=== PATIENT | female | born 1965 | race Caucasian/White ===

== ENCOUNTER → 2019-06-04 09:35 | Outpatient (CLI) | payer MEDICARE, MEDICAID, SELFPAY ==
--- NOTE | ~2019-06-04 | XR_ITS ---
EXAMINATION: XR chest 2V DATE: 06/04/2019 09:58 INDICATION: Cough, tobacco use TECHNIQUE: Frontal and lateral views of the chest are obtained COMPARISON: 02/14/2019 FINDINGS: The lungs are free of acute opacities. There is no pleural effusion or pneumothorax. The ca rdiomediastinal silhouette is normal. The visualized bones and soft tissues are unremarkable. IMPRESSION: 1. No acute cardiopulmonary abnormality. Reviewed, dictated and finalized at location B.
== END ==
PROVIDERS: PCP Emergency Medicine; Visit Provider Emergency Medicine
DX: R05 Cough (principal)
CPT/HCPCS: 71046

== ENCOUNTER 2019-09-23 16:52 | Emergency (ER) | payer MEDICARE, MEDICAID, SELFPAY ==
--- NOTE | ~2019-09-23 | US_ITS ---
EXAMINATION: US venous doppler LE RT DATE: 09/23/2019 17:32 INDICATION: Right lower limb pain and swelling. TECHNIQUE: Grayscale ultrasound images without and with compression and Doppler ultrasound images of the right lower extremity veins were obtained. COMPARISON: None. FINDINGS: The visualized portions of right common femoral vein, profunda (deep) femoral vein, femoral vein, pop liteal vein, peroneal veins, posterior tibial veins, and greater saphenous vein outflow are patent. T here is a moderate-sized right popliteal cyst. IMPRESSION: 1. No deep venous thrombosis. 2. Moderate-sized right popliteal cyst. Reviewed, dictated and finalized at location A.
[2019-09-23 17:00] VITALS: BP 153/87; PULSE 89; RESP 16; TEMP 37.6; O2SAT 97
--- NOTE | 2019-09-23 18:54 | ED.EXTPRO ---
HPI - Extremity Problem General Chief complaint: Extremity Problem,Nontraumatic Stated complaint: leg pain and swelling Time Seen by Provider: 09/23/19 18:41 Source: patient Mode of arrival: ambulatory Limitations: no limitations History of Present Illness HPI Narrative: This is a 53 year old female that presents to the ER for right calf pain x 3 days. Was told to come to the ER to r/o DVT by her PCP. Reports pain and swelling behind the right knee. Denies any recent injury or trauma. Denies decreased range of motion, erythema, edema, or numbness. Related Data Allergies Allergy/AdvReac Type Severity Reaction Status Date / Time codeine AdvReac Unknown Unverified 05/13/18 17:34 Review of Systems Review of Systems: Narrative: CONSTITUTIONAL: Denies fever SKIN: Denies erythema MUSCULOSKELETAL: Reports joint pain, and myalgia. NEUROLOGIC: Denies numbness All systems reviewed & are unremarkable except as noted in HPI and below PMFSH Past Medical History Medical History (Updated 09/23/19 @ 19:09 by Sadia Reeder PA-C) History of gastroesophageal reflux (GERD) History of hyperlipidemia Exam Narrative: Exam Narrative: GENERAL: Well-appearing, well-nourished, and in no acute distress. HEAD: Normocephalic, atraumatic. EYES: EOMI. EXTREMITIES: Normal range of motion. No edema, erythema or obvious deformity. SKIN: Warm, dry, no rash. NEURO: No focal deficits. Alert and oriented x3. PSYCH: Normal mood and affect Course Vital Signs Vital signs: Vital Signs Temperature 99.6 F 09/23/19 17:00 Pulse Rate 89 09/23/19 17:00 Respiratory Rate 16 09/23/19 17:00 Blood Pressure 153/87 H 09/23/19 17:00 Pulse Oximetry 97 09/23/19 17:00 Temperature 99.6 F 09/23/19 17:00 Pulse Rate 89 09/23/19 17:00 Respiratory Rate 16 09/23/19 17:00 Blood Pressure 153/87 H 09/23/19 17:00 Pulse Oximetry 97 09/23/19 17:00 MDM - Extremity (Nontraumatic) MDM Narrative Medical decision making narrative: Patient presents to the ER for right calf pain x 2 days. Patient is afebrile and nontoxic-appearing. No recent injury or trauma. Right lower extremity venous Doppler shows a moderate sized right popliteal cyst. Patient was updated on case findings. Will be given orthopedics for follow-up. Patient is stable and felt appropriate for further outpatient evaluation. She was given warnings to return to the ER Imaging Data Radiologist's impression: ITS Impressions Venous Doppler Study 09/23/19 17:38 IMPRESSION: 1. No deep venous thrombosis. 2. Moderate-sized right popliteal cyst. Critical Care Time Critical Care Time Critical Care Time: No Discharge Plan Discharge Clinical Impression: Synovial cyst of popliteal space [Hill], right knee Patient Disposition: Home, Self-Care Condition: Stable Instructions: Bakers Cyst (ED) Additional Instructions: Return to the emergency department if you experience fever, redness and swelling of your leg, or any other symptoms that are concerning to you Rest. Elevate. Ice to the area. Tylenol or ibuprofen as needed for pain Follow-up with orthopedics Follow-up/Referrals: Rigoberto Valladares MD [Physician] - 1 Week Shawn Mcclure MD [Primary Care Provider] -
[2019-09-23 19:23] VITALS: BP 144/90; PULSE 77; RESP 20; O2SAT 100
== END 2019-09-23 19:25 | disposition home or self-care (01) ==
PROVIDERS: Emergency Provider Emergency Medicine; PCP Emergency Medicine
DX: M71.21 Synovial cyst of popliteal space [Baker], right knee (principal); K21.9 Gastro-esophageal reflux disease without esophagitis; E78.5 Hyperlipidemia, unspecified
CPT/HCPCS: 93971; 99284

== ENCOUNTER 2019-10-10 09:22 | Outpatient (CLI) | payer MEDICARE, MEDICAID, SELFPAY ==
--- NOTE | ~2019-10-10 | US_ITS ---
CORRECTED REPORT Description changed to include w/ imaging. gabriel EXAMINATION: abscess/cyst asp w/imaging DATE: 10/10/2019 10:09 INDICATION: Right knee popliteal cyst. TECHNIQUE: The procedure including the risks and benefits was discussed with the patient. Risks discussed included bleeding and infection. The patient understood the risks and agreed to proceed. The skin overlying the posterior right knee was prepped and draped in usual sterile fashion. Anesthetic was administered with 1% lidocaine subcutaneously. An 18 gauge trochar needle was inserted into the Hill's cyst under continuous sonographic guidance. Fluid was aspirated. The entry site was cleaned and dressed. There were no immediate complications. FINDINGS: Ultrasound images demonstrate the needle in the right-sided Hill's cyst. IMPRESSION: 1. Ultrasound-guided right-sided Hill's cyst aspiration yielding 4 mL clear, earlene-colored fluid. Reviewed, dictated and finalized at location A. MTDD IMPRESSION: 1. Ultrasound-guided right-sided Hill's cyst aspiration yielding 4 mL clear, a mber-colored fluid.
== END 2019-10-10 09:23 | disposition home or self-care (01) ==
PROVIDERS: PCP Emergency Medicine; Visit Provider Nurse Practitioner Family
DX: M71.21 Synovial cyst of popliteal space [Baker], right knee (principal)
CPT/HCPCS: 10160; 76942

== ENCOUNTER 2019-11-27 09:30 | Outpatient (CLI) | payer MEDICARE, MEDICAID, SELFPAY ==
--- NOTE | ~2019-11-27 | MR_ITS ---
EXAMINATION: MR knee RT wo con DATE: 11/27/2019 10:25 INDICATION: Right knee pain TECHNIQUE: Magnetic resonance imaging (MRI) of the right knee was performed without intravenous contr ast. Sequences included coronal PD-weighted FSE, coronal PD-weighted FS FSE, sagittal T2-weighted FS E, sagittal PD-weighted FS FSE and axial PD weighted fat saturated FSE. COMPARISON: Right knee radiographs dated 10/07/2019 FINDINGS: Medial compartment: The body and posterior horn of the medial meniscus are small with truncation of the normally sharp fr ee edge of the free edge of the posterior horn and with residual horizontal longitudinal tear plane e xtending to the inferior articular surface of the remaining tissue at the meniscal body. There is no provided history of prior knee surgery or evident scarring at Hoffa's fat pad to suggest prior arthro scopy. Findings would be consistent with complex meniscal tear with displacement or degeneration resu lting in loss of the meniscal tissue. Partial-thickness cartilage loss with fissuring and chondral chaney rface regularity at the medial tibial plateau and at the anterior to central weightbearing medial fem oral condyle. Lateral compartment: Horizontal longitudinal tear extending to the inferior articular surface of the body of the lateral m eniscus. Mild chondral surface irregularity along the weightbearing lateral femoral condyle with part ial thickness cartilage loss posteriorly and relatively preserved thickness at the anterior to centra l weightbearing lateral femoral condyle. Patellofemoral compartment: Partial-thickness chondral fissure along the central aspect of the medial patellar facet. Chondral fi ssuring at the trochlear involving greater than 50% the cartilage thickness with subtle underlying co rtical irregularity at the inferior aspect of both the medial and lateral trochlea and at the central aspect of the trochlear groove. Ligaments and tendons: Anterior and posterior cruciate ligaments are normal. The fibular collateral ligament is normal. Ther e is mild thickening and mild increased signal at the proximal aspect of the medial collateral ligame nt without surrounding edema consistent with mild scarring related to chronic sprain. The extensor me chanism is normal. The visualized medial and lateral hamstring tendons as well as the iliotibial band are normal. Fluid: Physiologic amount of fluid in the joint space. No loose osteochondral bodies identified. Small Hill 's cyst measuring 4.3 x 1.2 x 1.1 cm. Osseous/other: Normal marrow signal. No fracture or pathologic marrow replacing process. IMPRESSION: 1. Complex tear of the small body and posterior horn of the medial meniscus with secondary loss/displ acement of meniscal tissue. Correlate with surgical history to confirm that there is not been prior p artial meniscectomy. 2. Small longitudinal horizontal tear at the body of the lateral meniscus. 3. Mild tricompartmental osteoarthritis with regions of high-grade chondromalacia at the trochlear an d moderate grade chondromalacia at the patella and medial and lateral compartments. 4. Small Hill's cyst. Reviewed, dictated and finalized at location A. IMPRESSION: 1. Complex tear of the small body and posterior horn of the medial meniscus wit h secondary loss/displacement of meniscal tissue. Correlate with surgical histo ry to confirm that there is not been prior partial meniscectomy. 2. Small longitudinal horizontal tear at the body of the lateral meniscus. 3. Mild tricompartmental osteoarthritis with regions of high-grade chondromalac ia at the trochlear and moderate grade chondromalacia at the patella and medial and lateral compartments. 4. Small Hill's cyst.
== END 2019-11-27 09:31 | disposition home or self-care (01) ==
PROVIDERS: PCP Emergency Medicine; Visit Provider Nurse Practitioner Family
DX: M25.561 Pain in right knee (principal); S83.231A Complex tear of medial meniscus, current injury, right knee, initial encounter; S83.281A Other tear of lateral meniscus, current injury, right knee, initial encounter; M17.11 Unilateral primary osteoarthritis, right knee; M22.41 Chondromalacia patellae, right knee; M71.21 Synovial cyst of popliteal space [Baker], right knee
CPT/HCPCS: 73721

== ENCOUNTER 2020-09-14 16:28 | Outpatient (CLI) | payer MEDICARE, MEDICAID, SELFPAY ==
--- NOTE | ~2020-09-14 | CT_ITS ---
EXAMINATION: CT lung screening DATE: 09/14/2020 16:49 INDICATION: History of tobacco dependence TECHNIQUE: Computed tomography (CT) of the chest was performed without intravenous contrast. The dose -length product was 149.42 mGy-cm. Automated exposure control and iterative reconstruction technique were employed. COMPARISON: CT dated 12/17/2018 FINDINGS: Heart size is normal. No significant pleural or pericardial effusion. There is moderate siz e hiatal hernia. No thoracic lymphadenopathy. There are several liver cysts, unchanged from prior exa mination. There is mild emphysema. Stable 3 mm fissural nodule on the right, coronal reconstruction i mage 49. Calcified granuloma left apex. Mild thoracic spondylosis. No acute osseous abnormality. IMPRESSION: 1. Lung-RADS category 2: Benign appearance or behavior. Continue annual screening with noncontrast lo w-dose chest CT in 12 months. Reviewed, dictated and finalized at location A. IMPRESSION: 1. Lung-RADS category 2: Benign appearance or behavior. Continue annual screeni ng with noncontrast low-dose chest CT in 12 months.
== END 2020-09-14 16:29 | disposition home or self-care (01) ==
LOC: ANHIMG 16:29
PROVIDERS: PCP Emergency Medicine; Visit Provider Emergency Medicine
DX: Z87.891 Personal history of nicotine dependence (principal)
CPT/HCPCS: 71271

== ENCOUNTER 2020-09-18 08:36 | Outpatient (CLI) | payer MEDICARE, MEDICAID, SELFPAY ==
--- NOTE | ~2020-09-18 | MM_ITS ---
EXAMINATION: MM screening tracey BI w lindsay HISTORY: Screening TECHNIQUE: Craniocaudal and mediolateral oblique 3-D tomosynthesis images were obtained and synthetic 2-D images were generated. CAD analysis was submitted and interpreted. COMPARISON: Comparison to multiple prior studies sequentially, with oldest reviewed study dated 04/21. BREAST PARENCHYMAL COMPOSITION: There are scattered areas of fibroglandular density. FINDINGS: There is no evidence of suspicious mass, calcification, or architectural distortion to sugg est malignancy in either breast. There has been no suspicious interval change. IMPRESSION: 1. No mammographic evidence of malignancy. 2. Recommend routine screening mammography in one year. BI-RADS Category 1: Negative Reviewed, dictated and finalized at location A.
== END 2020-09-18 08:37 | disposition home or self-care (01) ==
LOC: ANHIMG 08:38
PROVIDERS: PCP Emergency Medicine; Visit Provider Emergency Medicine
DX: Z12.31 Encounter for screening mammogram for malignant neoplasm of breast (principal)
CPT/HCPCS: 77063; 77067

== ENCOUNTER → 2021-01-29 00:11 | Outpatient (CLI) | payer MEDICARE, MEDICAID, SELFPAY ==
[2021-01-29 18:14] LABS: SARS-CoV-2 RNA PCR Negative
== END ==
PROVIDERS: PCP Emergency Medicine; Visit Provider Orthopaedic Surgery
DX: Z01.812 Encounter for preprocedural laboratory examination (principal); Z20.822 Contact with and (suspected) exposure to COVID-19
CPT/HCPCS: C9803; U0003; U0005

== ENCOUNTER 2021-01-31 10:24 | Outpatient (CLI) | payer MEDICARE, MEDICAID, SELFPAY ==
--- NOTE | 2021-01-31 10:30 | ECG_ITS ---
Measurements Intervals [place] Rate: 72 P: 56 OK: 210 QRS: 52 QRSD: 84 T: 62 QT: 353 QTc: 388 Interpretive Statements SINUS RHYTHM WITH FIRST DEGREE AV BLOCK DELAYED PRECORDIAL R/S TRANSITION BASELINE ARTIFACT- I, II, III, AVR, AVL, AVF ABNORMAL ECG Electronically Signed On 01-31-2021 10:54:40 BAG SHAKER by Nicholas Champion D.O.
== END 2021-01-31 10:25 | disposition home or self-care (01) ==
LOC: ANHSURGERY 10:30
PROVIDERS: PCP Emergency Medicine; Visit Provider Orthopaedic Surgery
DX: Z01.818 Encounter for other preprocedural examination (principal); F17.210 Nicotine dependence, cigarettes, uncomplicated; I44.0 Atrioventricular block, first degree
CPT/HCPCS: 93005

== ENCOUNTER 2021-02-01 01:24 | Day surgery (SDC) | payer MEDICARE, MEDICAID, SELFPAY ==
[2021-01-28 08:24] VITALS: BMI 28.0
--- NOTE | 2021-01-28 08:34 | PC.NURSE ---
Report to the Outpatient Waiting Room, entrance under the green pavilion located off [facility], at time 11:30 on date 02/01/21. OR Time: 1:30. - You and your visitor will be asked a series of questions to screen for COVID 19 for your protection. - A mask is required within the hospital. - Only one visitor is allowed at this time. Patient visitors will be guided where to wait when not with patient. Preoperative COVID Testing Requirements: No COVID Test needed if: (proof is required; if not received patient will have Rapid Test prior to entry) - Patient has received COVID Vaccine at least 14 days prior to procedure date or - Patient has positive COVID test result within last 90 days of surgery date. COVID Test needed if above criteria is not met If not COVID vaccinated a COVID test must be conducted within 72 hours of surgery and patient is asked to isolate self from time of testing until procedure. You will go to the [employer] [facility] for your COVID testing. The [employer] [facility] is located at the corner of [address] [facility]. COVID TEST 01/29 AT 8:05 You will only be called if COVID results are positive and your surgeon may reschedule your elective surgery date. Patients may have clear liquids (water, carbonated beverages, clear teas, apple juice) until 3 hours prior to surgery with a maximum of 20 ounces. - No food from midnight until time of surgery - Infants may have breast milk until 4 hours before surgery, infant formula 6 hours prior to surgery. - Children will be allowed to drink immediately following surgery. If applicable, please bring a bottle or sippy cup to assist with drinking. Juice, water, soda, and popsicles are readily available. For infants on formula, please bring formula the day of surgery. Pacifiers are allowed. Take the following medications with a SIP of water the morning of surgery: INHALER Medications to discontinue per physician: N/A Date to take last dose: N/A Please no make-up, nail brazilian, hairspray, perfume, deodorant, or body powder the day of surgery. No jewelry (including any body piercings) or valuables the day of surgery, leave them at home. Please take a shower or bath the night before, or the morning of, surgery with an antibacterial soap. Wear comfortable, loose fitting clothing. Children are encouraged to wear pajamas. HIBICLENS SHOWER X 3 DAYS - Jewelry must be removed prior to entering the operating room. Rings and piercings that are not removed may be cut off. - The hospital will not accept responsibility for valuables. - Please leave all valuables, including medications, at home the day of surgery. If you are going home after surgery, a licensed service parts driver must drive you home. - NO public transportation without another adult. - We recommend that an adult stay with you for 24 hours following discharge. - We also recommend that you do not drive, make important decision, drink alcoholic beverages, or take any drugs that were not prescribed by your health care provider for at least 24 hours after your discharge time. For Pediatric surgeries, we recommend two adults accompany the child home (only one inside the building at this time). Follow any additional instructions given to you from your surgeon. Telephone instructions given to ALDO LOWE and asked if any additional questions and then verbalized understanding. Patient advised to call surgeon office or pre surgery nurse liaison [phone] if any additional questions.
[2021-02-01] VITALS (8 sets, daily range): BP systolic 102–155; BP diastolic 49–85; PULSE 58–83; RESP 12–23; TEMP 36.3–36.4; O2SAT 95–100
--- NOTE | 2021-02-01 07:24 | WPDHPUPDATE1 ---
History and Physical Update Update Date/Time: 02/01/21 07:24 History and Physical has been reviewed, including an updated exam of the patient. There are NO changes in the patient's condition. Risks, benefits, and alternatives have been discussed and questions answered. Patient agrees to proceed with procedure.
--- NOTE | 2021-02-01 08:46 | WPDANESEPPF ---
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, chondromylasia Patient Data Age: 55 Gender: F Height: 1.75 m Weight: 86.18 kg Allergies Allergy/AdvReac Type Severity Reaction Status Date / Time codeine Allergy Unknown Chest Pain Verified 02/01/21 08:45 Home Medications Medication Instructions Recorded Confirmed Type chlorhexidine gluconate 4 % 1 applic TOPICAL ONCE #237 ml 01/24/21 01/28/21 Rx topical liquid amitriptyline 10 mg PO HS 01/28/21 01/28/21 History zmjweaeptah-vwudhcfba-bwgrxfqk 1 inh INHALATION DAILY 01/28/21 01/28/21 History [Trelegy Ellipta] sucralfate 1 g PO TID 01/28/21 01/28/21 History Patient hx anesthesia problems: none Family hx anesthesia problems: none Results Review: All pre-operative results and documents have been reviewed as part of the pre-operative evaluation. [facility] Past Medical History Medical History Degenerative joint disease of knee Emphysema of lung Headache History of gastroesophageal reflux (GERD) History of hyperlipidemia Lateral meniscus tear Medial meniscus tear Popliteal cyst Right knee pain Shortness of breath Sleep disorder Stomach pain Stomach ulcer Vision abnormalities Weight gain Surgical History Surgical History History of carpal tunnel release Family History Family History Other Arthritis Heart disease Social History Social History Smoking packs per day: 1 Smoking cigarettes per day: 20.0 Years smoked: 30 Smoking pack-years: 30.00 Smoking status: Current every day smoker Tobacco type: cigarettes Alcohol intake: current Drinks per week: 2 Substance use: never Substance use type: does not use Living arrangements: with family Spiritual care concerns: No Anes - Eval Final PreProcedure Day of Procedure 02/01/21 08:46 Patient weight: overweight Heart: regular rate and rhythm Lungs: decreased breath sounds Airway: Mallampati scale class II Neurological: alert and oriented Last oral intake: >/= 8 hours ASA classification: III Emergent: no Anesthetic plan: proceed Anesthesia type and monitoring: general LMA and standard monitoring Results Review: All pre-operative results and documents have been reviewed as part of the pre-operative evaluation. Informed Consent: The patient's anesthetic plan and its attendant risks and benefits were discussed with the patient/family/POA. Questions were solicited and answers provided to the satisfaction of the patient/family/POA.
[2021-02-01] MEDS: ACETAMINOPHEN 500 MG TABLET 1000 MG PO (08:53)
[2021-02-01] MEDS: CELECOXIB 200 MG CAPSULE PO (08:54)
[2021-02-01] MEDS: LACTATED RINGERS 1,000 ML 30 ML IV CONT ×2 (09:33→10:44)
[2021-02-01] MEDS: ceFAZolin 2 GM/D5W 50 ML 2 GM/50 ML BAG IVPB (09:52)
[2021-02-01] MEDS: BUPIVACAINE HCL 0.5% PF 30 ML VIAL INFILTRATE (10:16)
--- NOTE | 2021-02-01 10:58 | W.PM.PROC2 ---
Procedure Note - Detailed Date of Procedure 02/01/21 Pre-op Diagnosis right lateral meniscus tear, chondromylasia Post-op Diagnosis other (RIGHT MEDIAL AND LATERAL MENISCUS TEAR) Procedure Performed RIGHT KNEE SCOPE Surgeon Gerardo Ramirez MD Anesthesia general Description of Procedure PATIENT WAS TAKEN TO THE OR. RIGHT LEG WAS PREPPED AND DRAPED STERILE. TROCARS WERE PLACED IN THE USUAL FASHION. CAMERA WAS INTRODUCED. THERE WAS CHONDROMALACIA TO THE PATELLA FEMORAL JOINT. THERE WAS A LOT OF SYNOVITIS IN ALL COMPARTMENTS. THE MEDIAL COMPARTMENT SHOWED CHONDROMALACIA TO THE MEDIAL FEMORAL CONDYLE. A SHAVER WAS USED TO PREFORM A CHONDROPLASTY. THERE WAS A COMPLEX MEDIAL MENISCUS TEAR. THE TEAR WAS RESECTED WITH A BITER AND A SHAVER DOWN TO A SMOOTH BASE. ABOUT 30% OF THE MENISCUS WAS REMOVED. THE ACL WAS INTACT. THE LATERAL MENISCUS WAS TORN AT THE ANTERIOR HORN AND MID SUBSTANCE. THE TEAR WAS RESECTED. THE LATERAL COMPARTMENT HAD GRADE 2 CHONDROMALACIA AT THE LATERAL FEMORAL CONDYLE. CHONDROPLASTY WAS PREFORMED. A SYNOVECTOMY WAS PREFORMED WELL. THE PATELLO FEMORAL JOINT UNDERWENT CHONDROPLASTY. THERE WAS GRADE 2 CHONDROMALACIA IN MOST OF THE TROCHLEA AND PART OF THE PATELLA. SYNOVECTOMY WAS PREFORMED IN THE SUPERIOR MEDIAL COMPARTMENT. THE WOUNDS WERE APPROXIMATED WITH 4.0 NYLON. STERILE DRESSING WAS APPLIED. PATIENT WAS EXTUBATED. Estimated Blood Loss 5 Complications No immediate complications Condition stable Disposition PACU
[2021-02-01] MEDS: fentaNYL CITRATE INJ (*CRX) 100 MCG/2 ML VIAL 25 MCG IV PUSH ×4 (11:07→11:27)
[2021-02-01] MEDS: oxyCODONE HCL (*CRX) 5 MG TAB IR PO (11:55)
== END 2021-02-01 12:30 | disposition home or self-care (01) ==
PROVIDERS: PCP Emergency Medicine; Visit Provider Orthopaedic Surgery
PROC: (CPT 29870; principal; 2021-02-01 10:30)
DX: M23.341 Other meniscus derangements, anterior horn of lateral meniscus, right knee (principal); M23.331 Other meniscus derangements, other medial meniscus, right knee; M94.261 Chondromalacia, right knee; M65.861 Other synovitis and tenosynovitis, right lower leg; J43.9 Emphysema, unspecified; F17.210 Nicotine dependence, cigarettes, uncomplicated
CPT/HCPCS: 29880; 93005; A9270; C9803; J0690; J1100; J2250; J2405; J2704; J3010; J7120; U0003; U0005

== ENCOUNTER → 2021-02-07 09:16 | Outpatient (CLI) | payer MEDICARE, MEDICAID, SELFPAY ==
--- NOTE | ~2021-02-07 | CT_ITS ---
EXAMINATION: CT chest abdomen pelvis w con EXAM DATE: 02/07/2021 10:12 INDICATION: Epigastric pain, Other chest pain. TECHNIQUE: Spiral CT of the chest, abdomen and pelvis was performed following intravenous injection o f 100 mL Omnipaque 350. Axial, coronal and sagittal images chest, abdomen and pelvis were reviewed. Coronal maximum intensity pixel images of chest reviewed. The dose-length product (DLP) for this ex amination was 1268.45 mGy-cm. The exposure was tailored according to patient size (auto mA exposure control), and iterative reconstruction (ASIR) was used as additional dose reduction technique. Compar karma is made to prior examination from 09/14/2020. FINDINGS: CHEST: There is mild emphysema. No central pulmonary emboli or suspicious lung opacities. There are no pleural or pericardial effusions. Tracheobronchial tree is patent. There is no mediastinal, hi lar or axillary lymphadenopathy. There is no pneumothorax. Heart normal in size. No evidence of coronary arterial calcification. ABDOMEN PELVIS: Scattered liver cysts up to about 5 cm. Spleen, adrenal glands and pancreas are unrem arkable. There are cholecystectomy clips. Portal and splenic veins are patent. Kidneys enhance sym metrically. There is no hydronephrosis. The uterus is unremarkable. The bladder is unremarkable. There is no retroperitoneal or pelvic lymphadenopathy. Small umbilical fat-containing hernia. The appendix is normal. There is moderate sigmoid colonic diverticulosis. There is no adjacent infla mmatory change to suggest diverticulitis. There is small to moderate-sized gastroesophageal hiatal he rnia. There is expected amount of colonic stool. No free intraperitoneal gas. There are no osteo blastic or osteolytic lesions identified. IMPRESSION: 1. Small to moderate gastroesophageal hiatal hernia. 2. Moderate sigmoid diverticulosis. 3. Small umbilical fat-containing hernia. 4. Mild emphysema. Reviewed, dictated and finalized at location A. NG PLANT OPERATOR
== END ==
PROVIDERS: PCP Emergency Medicine; Visit Provider Internal Medicine Gastroenterology
DX: R10.13 Epigastric pain (principal); R07.89 Other chest pain; K57.30 Diverticulosis of large intestine without perforation or abscess without bleeding; K42.9 Umbilical hernia without obstruction or gangrene; J43.9 Emphysema, unspecified
CPT/HCPCS: 71260; 74177; Q9967

== ENCOUNTER 2021-05-09 08:27 | Outpatient (CLI) | payer OTHER, SELFPAY ==
--- NOTE | ~2021-05-09 | XR_ITS ---
EXAMINATION: XR barium swallow DATE: 05/09/2021 09:23 EAP CONSULTANT INDICATION: Dysphagia. Epigastric pain. TECHNIQUE: Thick barium contrast with gas effervescent crystals were administered orally. Fluoroscop ic images of the esophagus were obtained in various projections. The hypopharynx was also examined. T hereafter, overhead images of the thoracic esophagrus were performed. Fluroscopy time 0.3Dap 9.6 FINDINGS: There is mild narrowing and mucosal irregularity of the distal esophagus near the gastroeso phageal junction. There is a small hiatal hernia. Gastroesophageal reflux is identified. IMPRESSION: 1. Mild distal esophageal narrowing and mucosal irregularity with gastroesophageal reflux, suspiciou s for reflux esophagitis. Reviewed, dictated and finalized at location A. CONSULTANT IMPRESSION: 1. Mild distal esophageal narrowing and mucosal irregularity with gastroesopha geal reflux, suspicious for reflux esophagitis.
== END 2021-05-09 08:28 | disposition home or self-care (01) ==
LOC: ANHIMG 08:33
PROVIDERS: PCP Emergency Medicine; Visit Provider Nurse Practitioner Family
DX: R13.10 Dysphagia, unspecified (principal); R10.13 Epigastric pain; R11.2 Nausea with vomiting, unspecified
CPT/HCPCS: 74220

== ENCOUNTER 2021-11-03 07:47 | Outpatient (CLI) | payer OTHER, SELFPAY ==
--- NOTE | ~2021-11-03 | NM_ITS ---
EXAM: NM gastric emptying study DATE: 11/03/2021 12:52 CDT INDICATION: Reflux. Dysphagia. TECHNIQUE: A gastric emptying study was performed using the methodology of Mckenna SHELTON, et al. J Nucl Med 2007; 48:568-572. The patient was given a meal consisting of 2 scrambled eggs labeled with mCi T c-99m sulfur colloid, 2 slices of toast, two packages of jam, and approximately 120 mL of water. Simu ltaneous anterior and posterior 1-min images of the abdomen were obtained with the patient supine at multiple time points over a total period of 4 hours. The geometric mean of anterior and posterior vie ws was determined, and the percentage retention was calculated for each time point. COMPARISON: CT dated 02/07/2021. FINDINGS: Gastric retention of the radiotracer-labeled meal was 53%, 21%, and 3% at the 1-hour, 2-ho ur, and 4-hour time points, respectively. With this technique, apparent rapid gastric emptying is sug gested by <30% gastric retention at 1 hour. Delayed gastric emptying is defined by gastric retention of >90% at 1 hour, >60% retention at 2 hours, or >10% retention at 4 hours. IMPRESSION: 1. Normal gastric emptying. Reviewed, dictated and finalized at location A. IMPRESSION: 1. Normal gastric emptying.
== END 2021-11-03 07:48 | disposition home or self-care (01) ==
PROVIDERS: PCP Emergency Medicine; Visit Provider Internal Medicine Gastroenterology
DX: K21.9 Gastro-esophageal reflux disease without esophagitis (principal); R13.10 Dysphagia, unspecified
CPT/HCPCS: 78264; A9541

== ENCOUNTER 2024-05-26 12:21 | Outpatient (CLI) | payer MEDICARE, MEDICAID, SELFPAY ==
--- NOTE | ~2024-05-26 | CT_ITS ---
CT Scan of the Chest without Contrast: Clinical Indication: Lung cancer screening, nicotine dependence Technique: Contiguous sections were acquired throughout the chest without intravenous contrast. Dose reduction technique was used on this scan by utilizing automated exposure control and iterative recon struction technique. The dose-length product (DLP) was 158.30 mGy-cm. COMPARISON: 01/18/2021 Findings: There is no evidence of any significant mediastinal, hilar or axillary lymphadenopathy. The mediastin al soft tissues appear normal. There is no evidence of pleural or pericardial effusion. Stable focal irregular nodular groundglass opacity in the medial left lung apex (axial image 20). Mil d emphysema. Images through the upper abdomen reveal moderate hiatal hernia and hepatic cysts. Impression: Lung RADS 2: Benign appearance. 12 month follow-up screening CT advised. Reviewed, dictated and finalized at location . Impression: Lung RADS 2: Benign appearance. 12 month follow-up screening CT advised.
== END 2024-05-26 12:22 | disposition home or self-care (01) ==
LOC: MICIMG 12:23
PROVIDERS: PCP Physician Assistant; Visit Provider Physician Assistant
DX: Z12.2 Encounter for screening for malignant neoplasm of respiratory organs (principal); Z87.891 Personal history of nicotine dependence
CPT/HCPCS: 71271

== ENCOUNTER 2024-06-09 07:58 | Outpatient (CLI) | payer MEDICARE, MEDICAID, SELFPAY ==
--- OUTSIDE RECORDS SUMMARY | 2024-06-09 08:06 | XMS_ITS | Clinical Summary ---
Author Organization [facility] Address [address] [address] Care Team Providers Care Analog Design Engineer Name Role Phone Shawn Mcclure MD Primary Care Provider [phone] Source Comments [facility],non-owned Affiliates and Associated Physician Practices is amultiple site organization consisting of ambulatory clinics and hospital sitesin [place], [place], [place] and [place]. This disclosure is being madepursuant to the Care Everywhere program and may not contain all information available regarding this patient. Last updated 17.[facility] Allergies Active Allergy Reactions Criticality Noted Date Comments Codeine 02/12/2016 Medications * Be aware that medications may not be up to date on this document. Alwaysverify current medications with the patient. Medication Sig Dispensed Refills Start Date End Date Status Cholecalciferol (VITAMIN D3 PO) Active albuterol HFA (VENTOLIN HFA) 108 (90 BASE) MCG/ACT inhalerIndications:A cute bronchitis, unspecified organism,Tobacco abuse Inhale 2 Puffs by mouth every 6 hours as needed for Shortness of Breath, Wheezing or Cough 1 Inhaler 03/15/2016 Active RaNITidine HCl (ZANTAC PO) Active mometasone-formotero l (DULERA) 100-5 MCG/ACT inhaler Inhale 2 puffs by mouth 2 times daily Active IBUPROFEN PO Active Active Problems No known active problems Social History Tobacco Use Types Packs/Day Years Used Date Smoking Tobacco: Every Day Cigarettes Smokeless Tobacco: Never Tobacco Cessation:Ready to Q uit: Yes; Counseling Given: Yes Sex and Gender Information Value Date Recorded Sex Assigned at Not on file Gender Identity Not on file Sexual Orientation Not on file Last Filed Vital Signs Vital Sign Reading Time Taken Comments Blood Pressure 118/82 06/21/2017 5:34 PM CDT Pulse 80 06/21/2017 5:34 PM CDT Temperature 36.7 C (98 F) 06/21/2017 5:34 PM CDT Respiratory Rate 18 06/21/2017 5:34 PM CDT Oxygen Saturation 98% 06/21/2017 5:34 PM CDT Inhaled Oxygen Concentration - - Weight 90.7 kg (200 lb) 05/31/2018 9:09 AM CDT Height 175.3 cm (5' 9 ) 05/31/2018 9:09 AM CDT Body Mass Index 29.53 05/31/2018 9:09 AM CDT Plan of Treatment Health Maintenance Due Date Last Done Comments COLOGUARD (AGES 45-75) - COL ON CA SCREENING 1963 COLON MONITORING 1963 COLONOSCOPY - COLON CA SCREENING 1963 CT COLONOGRAPHY - COLON CA SCREENING 1963 Colorectal Cancer Screening 1963 FIT - COLON CA SCREENING 1963 FLEX SIG - COLON CA SCREENING 1963 LIPID TESTING 1965 MAMMOGRAM 1965 MEDICARE AWV 12 MONTHS 1963 PAP SMEAR 1963 HIV SCREENING 10/04/1978 HEPATITIS C SCREENING 09/30/1981 DTAP/TDAP/TD VACCINES (1 - Tdap) 10/04/1982 PNEUMOCOCCAL VACCINE (1 of 2 - PCV) 10/04/1982 PNEUMOCOCCAL VACCINE 50+ (1 of 1 - PCV) 10/04/2013 ZOSTER VACCINE (1 of 2) 10/04/2013 SCREENING FOR DIABETES 04/03/2017 COVID-19 VACCINE ( - 2023-2 5 season) 2023 INFLUENZA VACCINE (#1) 2023 DEPRESSION SCREENING 03/12/2024 Respiratory Syncytial Virus (RSV) Vaccine Pt: or over 60 yrs (1 - 1-dose 75+ series) 10/04/2038 HEPATITIS B VACCINE Aged Out No longe r eligible based on patient's age to complete this topic HIB VACCINE Aged Out No longer eligi ble based on patient's age to complete this topic HPV VACCINE Aged Out No longer eligi ble based on patient's age to complete this topic MENINGOCOCCAL (Group B) VACC INE SHARED DECISION-MAKING Aged Out No longer eligibl e based on patient's age to complete this topic MENINGOCOCCAL GROUPS A/C/Y/W VACCINE Aged Out No longer eligible b ased on patient's age to complete this topic Insurance Payer Benefit Plan / Group Subscriber ID Effective Dates Phone Address Type MEDICARE [facility] MEDICARE PART B [id number] 10/10/2016-Pres ent [address] [address] [place] [address] Medicare MEDICAID - OUT OF [facility] MEDICAID - [place] PUBLIC AID [id number] 03/12/2017-Pres ent [address] [address] [place] [address] Medicaid [facility] [employer] [place] [facility] [place] MEDICAID [id number] Effective for all dates [phone] [address] [place] [address] Medicaid Managed Care MEDICARE MEDICARE PART A AND B [id number] 10/10/2016-Pres ent [address] [place] [address] Medicare MEDICARE [place] MED[place]ARE [id number] 10/10/2016-Pres ent [address] [place] [address] Medicare MEDICAID - [place] - [place] MEDICAID [id number] Effective for all dates [address] [address] [place] [address] Medicaid [place] Care Teams Analog Design Engineer Relationship Specialty Start Date End Date Shawn Mcclure MD [address] [place] [address] PCP - General 09/26/19
--- OUTSIDE RECORDS SUMMARY | 2024-06-09 08:06 | XMS_ITS | Clinical Summary ---
Author Organization [facility] Address [address] [place] [address] Care Team Providers Care Slicing Machine Tender Name Role Phone Shawn Mcclure MD Primary Care Provider [phone] Allergies Active Allergy Reactions Criticality Noted Date Comments Codeine Chest pressure 03/10/2020 Medications ibuprofen 400 MG tablet Active simvastatin 40 MG tablet 0 Active omeprazole 40 MG capsule Take 40 mg by mouth daily. 0 Active meloxicam 7.5 MG tablet Take 7.5 mg by mouth daily as needed. 0 Active fenofibrate 145 MG tablet Take 145 mg by mouth daily. 1 Active buPROPion SR 150 MG 12 hr tablet TAKE 1 TABLET BY MOUTH ONCE DAILY FOR 3 DAYS THEN ONE TABLET TWICE DAILY SEPARATE DOSES BY AT LEAST 8 HOURS LAST DOSE BEFORE 6PM. STOP SMOKI 1 Active oxybutynin XL 10 MG 24 hr tablet Take 10 mg by mouth daily. 1 Active amitriptyline 10 MG tablet 1 Active amitriptyline 50 MG tablet 1 Active atorvastatin 40 MG tablet 1 Active sucralfate 1 G tablet 1 Active losartan 25 MG tablet Take 25 mg by mouth daily. 2 Active fluticasone-umec lidinium-vilante rol (TRELEGY) 100-62.5-25 MCG/INH AEROSOL POWDER, BREATH ACTIVATEDIndicat ions:Chronic obstructive pulmonary disease, unspecified COPD type (CMS/HCC HHS/HCC) Inhale 1 puff into the lungs daily. 1 each 2 Active albuterol sulfate HFA 108 (90 Base) MCG/ACT inhalerIndicatio ns:Pulmonary emphysema, unspecified emphysema type ([facility]) INHALE 2 PUFFS BY MOUTH EVERY 4 HOURS NEEDED FOR WHEEZING FOR SHORTNESS OF BREATH 18 g 3 Active Active Problems Problem Noted Date Diagnosed Date Chronic obstructive pulmonar y disease, unspecified COPD type ([facility]) 05/03/2020 Cigarette nicotine dependenc e with nicotine-induced disorder 05/03/2020 Physical deconditioning 11/15/2017 GERD (gastroesophageal reflux disease) 7 History of snoring 01/11/2017 Obesity 01/11/2017 Pulmonary emphysema ([facility]) 01/11/2017 Disorder of bone 08/19/2015 Benign neoplasm of adrenal gland 06/03/2014 Acute hemorrhagic gastritis 01/16/2014 Helicobacter pylori gastrointestinal tract infec tion 06/03/2013 Abdominal pain 05/06/2013 Chronic liver disease 05/06/2013 Low back pain 04/21/2013 Vitamin D deficiency 04/21/2013 Resolved Problems Problem Noted Date Diagnosed Date Resolved Date Encounter for preventive health examination 01/03/2017 11/21/2019 Family History Medical History Relation Comments Cancer Other Diabetes Other Heart Disease Other Hypertension Other Kidney Disease Other Lung Disease Other Relation Status Comments Father anuerysm of stom ach Mother Alive Other Social History Tobacco Use Types Packs/Day Years Used Date Smoking Tobacco: Every Day Cigarettes Smokeless Tobacco: Never Tobacco Cessation:Ready to Q uit: No; Counseling Given: Yes Alcohol Use Standard Drinks/Week Comments Yes 0 (1 standard drink = 0.6 oz pur e alcohol) occas. 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 Gender Identity Not on file Sexual Orientation Not on file Last Filed Vital Signs Vital Sign Reading Time Taken Comments Blood Pressure 140/82 11/08/2021 11:48 AM CDT Pulse 62 11/08/2021 11:48 AM CDT Temperature 36.4 C (97.5 F) 11/08/2021 11:48 AM CDT Respiratory Rate 17 11/08/2021 11:48 AM CDT Oxygen Saturation 98% 11/08/2021 11:48 AM CDT Inhaled Oxygen Concentration - - Weight 83.9 kg (185 lb) 11/08/2021 10:08 AM CDT Height 175.3 cm (5' 9 ) 08/29/2021 8:22 AM CDT Body Mass Index 27.32 08/29/2021 8:22 AM CDT Plan of Treatment Health Maintenance Due Date Last Done Comments Cervical Cancer Screening Pa p Smear (Age 30 to 64) Every 3 Years 1963 Colorectal Cancer Screening Colonoscopy (10 Years) 1963 Annual Physical 10/04/1966 Pneumococcal Vaccine: Pediat rics (0 to 5 Years) and At-Risk Patients (6 to 64 Years) (1 of 2 - PCV) 10/04/1969 Hepatitis C 10/04/1981 DTaP, Tdap and Td Vaccines ( 1 - Tdap) 10/04/1982 Cervical Cancer Screening Pa p with HPV Testing (Age 30 to 64) Every 5 Years 10/04/1993 Cervical Cancer Screening with HPV 10/04/1993 Mammogram Screening 2003 Zoster Vaccines (1 of 2) 10/04/2013 RSV Immunization or 60+ Years (1 - Risk 60-74 years 1-dose series) 2023 COVID-19 Vaccine (1 - 2023-2 5 season) 2023 Influenza Adult (#1) 2023 PHQ-2 (Physician [place]) 03/12/2024 Meningococcal B Vaccine Aged Out No l onger eligible based on patient's age to complete this topic Meningococcal Vaccine Aged Out No antelmo susanne eligible based on patient's age to complete this topic RSV Immunizations Under 20 Months Aged Out No longer eligible based on patient's age to complete this topic Insurance [employer] Care Teams Slicing Machine Tender Relationship Specialty Start Date End Date Shawn Mcclure MD [address] [address] PCP - General FAMILY PRACTICE 03/17/20
--- OUTSIDE RECORDS SUMMARY | 2024-06-09 08:06 | XMS_ITS | Encounter Summary ---
Author Organization [facility] Address [facility] [place] [address] Care Team Providers Care Career Technical Counselor Name Role Phone Shawn Mcclure MD Primary Care Provider [phone] Encounter Details Date Type Department Care Team (Late st Contact Info) Description 03/10/2020 Prep for Procedure [facility] [place], [place] [id number] Abe Barros MD [address] [id number] Social History Tobacco Use Types Packs/Day Years Used Date Smoking Tobacco: Every Day Cigarettes Smokeless Tobacco: Never Alcohol Use Standard Drinks/Week Comments Yes 0 (1 standard drink = 0.6 oz pur e alcohol) occas. Comments Unknown Sex and Gender Information Value Date Recorded Sex Assigned at Not on file Legal Sex Female 11:02 PM CAMERA ENGINEER Gender Identity Not on file Sexual Orientation Not on file documented as of this encounter Plan of Treatment Not on file documented as of this encounter Results * PRE-SURGICAL/PRE-PROCEDURE CORONAVIRUS (COVID 19) (03/14/2020 9:07 AM CAMERA ENGINEER) CORONAVIRUS SARS COV 2 PCR (RESP) NOT DETECTED NOT DETECTED 03/15/2020 10:26 AM CAMERA ENGINEER [facility] Comment: A Not Detected (negative) test result for this test means that SARS- CoV-2 RNA was not present in the specimen above the limit of detection. A negative result does not rule out the possibility of COVID-19 and should not be used as the sole basis for treatment or patient management decisions. If COVID-19 is still suspected, based on exposure history together with other clinical findings, re-testing should be considered in consultation with public health authorities. Laboratory test results should always be considered in the context of clinical observations and epidemiological data in making a final diagnosis and patient management decisions. Please review the Fact Sheets and FDA authorized labeling available for health care providers and patients using the following websites: https://www.Pinkdingo.nooked/home/Covid-19/HCP/[facility]/fact- sheet.html https://www.Pinkdingo.nooked/home/Covid-19/Patients/ [facility]/fact-sheet.html This test has been authorized by the FDA under an Emergency Use Authorization (EUA) for use by authorized laboratories. Due to the current public health emergency, [facility] is receiving a high volume of samples from a wide variety of swabs and media for COVID-19 testing. In order to serve patients during this public health crisis, samples from appropriate clinical sources are being tested. Negative test results derived from specimens received in non-commercially manufactured viral collection and transport media, or in media and sample collection kits not yet authorized by FDA for COVID-19 testing should be cautiously evaluated and the patient potentially subjected to extra precautions such as additional clinical monitoring, including collection of an additional specimen. Methodology: Nucleic Acid Amplification Test (NAAT) includes RT-PCR or TMA Additional information about COVID-19 can be found at the [facility] website: www.Retrieve.nooked/Covid19. Test performed at [facility] [address] [place] [address] Director: CATY CONN DO,MPH FIRST TEST YES 03/14/2020 10:34 AM [facility] EMPLOYED IN HEALTHCARE UNKNOWN 03/14/2020 10:34 AM [facility] SYMPTOMATIC DEFINED BY CDC NO 03/14/2020 10:34 AM [facility] DATE OF SYMPTOM ONSET UNKNOWN 03/14/2020 10:57 AM [facility] HOSPITALIZATION STATUS NO 03/14/2020 10:34 AM CAMERA ENGINEER [facility] PATIENT IN ICU NO 03/14/2020 10:34 AM CAMERA ENGINEER [facility] UNKNOWN 03/14/2020 10:34 AM CAMERA ENGINEER [facility] NOT 03/14/2020 10:34 AM CAMERA ENGINEER [facility] PATIENT'S RACE WHITE OR 03/14/2020 10:34 AM CAMERA ENGINEER [facility] Comment:OTHER ETHNICITY NONHISPANIC 03/14/2020 10:34 AM CAMERA ENGINEER [facility] SOURCE (QST) NASOPHARYNGEAL SWAB 03/14/2020 10:34 AM CAMERA ENGINEER [facility] NASOPHARYNGEAL SWAB / Unknown 03/14/2020 9:07 AM CAMERA ENGINEER us Abe Barros MD MICROBIOLOGY - GENERAL EMI SOUZA Final Result [facility] [address] [place] [address], [employer] [address], documented in this encounter Visit Diagnoses Diagnosis Dysphagia- Primary Dysphagia, unspecified documented in this encounter Additional Health Concerns Infection Onset Date Last Indicated Resolved Time COVID-19 Rule Out 03/14/2020 03/14/2020 03/15/2020 10:26 AM CAMERA ENGINEER COVID-19 Rule Out 06/29/2020 06/29/2020 06/30/2020 6:46 AM CDT COVID-19 Rule Out 09/16/2021 09/16/2021 09/17/2021 2:14 AM CDT COVID-19 Rule Out 11/04/2021 11/04/2021 11/05/2021 10:45 AM CDT documented as of this encounter Care Teams Career Technical Counselor Relationship Specialty Start Date End Date Shawn Mcclure MD [address] [place] [id number] PCP - General FAMILY PRACTICE 03/17/20 documented as of this encounter
--- OUTSIDE RECORDS SUMMARY | 2024-06-09 08:06 | XMS_ITS | CONTINUITY OF CARE DOCUMENT ---
Author Name jorge patel Address Unknown Organization [facility] Address [address] [facility] [facility] [facility] [address] [place] [address] Phone [phone] Care Team Providers Care Truck Bench Mechanic Name Role Phone Giorgi Brown MD Unavailable STEFANY HOLLINS MD Unavailable [phone] STEFANY HOLLINS MD Unavailable [phone] INSURANCE PROVIDERS Payer name Policy type / Coverage type [place] red [employer] [employer] Medicaid 0 [id number] [place] [employer] Medicare [id number]
--- NOTE | 2024-06-09 18:05 | WPDSIXMINUTE ---
Six Minute Walk Procedure Procedure Performed Pulmonary Stress Test (6 min walk) Six Minute Walk Six Minute Walk: This is a 6 minute walk test. The test was performed and interpreted in accordance with the 2014 ERS/ATS task force guidelines. Findings: The patient's resting room air oxygen saturation measured by pulse oximetry was 95%, the heart rate was 93 bpm, and the modified Blair dyspnea score was 0. Patient ambulated for 396 meters and oxygen saturation remained 94 to 95%. At the end of the study the heart rate was 104 bpm and the modified Blair dyspnea score was 3-4. The patient did not qualify for supplemental oxygen at rest or with ambulation. There are no prior studies for comparison.
--- NOTE | 2024-06-09 18:06 | WPDPFTINT ---
PFT Procedure Performed PFT Procedure Performed Spirometry with Pre/Post Bronchodilator Plethysmography (Lung Vol) Diffusing Cap (DLCO) Flow Vol Loop PFT Interpretation This is a pulmonary function test with pre and post-bronchodilator spirometry, plethysmography and diffusing capacity. The test was performed and results interpreted in accordance with the 2019 and 2005 ATS/ERS Task Force guidelines respectively using the Global Lung Function Initiative-2012 reference equations. Patient demonstrated good effort and cooperation. Reproducibility criteria were met. The quality of the pre bronchodilator spirometry maneuver was Grade A and post bronchodilator spirometry maneuver was Grade A. Findings: Spirometry: There is decreased maximal expiratory airflow at all lung volumes with concave expiratory flow tracing. The contour the inspiratory flow tracing is normal. The pre bronchodilator FVC is 3.24 L, 86% predicted. The pre bronchodilator FEV1 is 1.40 L, 48% predicted. The pre bronchodilator FEV1: FVC ratio is 43%. The post bronchodilator FVC is 3.34 L, representing a 3% increase. The post bronchodilator FEV1 is 1.45 L, representing a 3% increase. The post bronchodilator FEV1: FVC ratio is 43%. Plethysmography: The total lung capacity is 6.07 L, 105% predicted. The functional residual capacity is 3.84 L, 116% predicted. The residual volume is 2.83 L, 127% predicted. Diffusing capacity: The diffusing capacity unadjusted for hemoglobin and carboxyhemoglobin is 14.5, 61% predicted. The diffusing capacity adjusted for alveolar volume is 3.40, 81% predicted. Impression: There is a severe obstructive abnormality. There is no significant improvement after inhaling a single dose of albuterol. The lung volumes are normal. The diffusing capacity unadjusted for hemoglobin and carboxyhemoglobin is mildly decreased and normalizes when adjusted for alveolar volume. There are no prior studies for comparison
== END 2024-06-09 07:59 | disposition home or self-care (01) ==
PROVIDERS: Visit Provider Physician Assistant
DX: J43.9 Emphysema, unspecified (principal); R94.2 Abnormal results of pulmonary function studies
CPT/HCPCS: 94060; 94618; 94726; 94729

== ENCOUNTER 2024-07-01 03:11 | Day surgery (SDC) | payer MEDICARE, MEDICAID, SELFPAY ==
[2024-06-26 14:13] VITALS: BMI 28.8
--- OUTSIDE RECORDS SUMMARY | 2024-07-01 03:13 | XMS_ITS | Continuity of Care Document ---
Author Organization [facility] Address [address] [place] [address] [place] [address] Phone Care Team Providers Care Environmental Compliance Engineer Name Role Phone Jerome De La Fuente MD Unavailable Unavailable Allergies, Adverse Reactions, Alerts Substance Reaction Status Criticality codeine Active No Information Medications Medication Instructions Dosage Effective Dates (start - stop) Status Comments [place] 7.5 mg-325 mg tablet take 1 tablet by oral route 3 times every day as needed for pain 1 tablet - Active avoid driving ramiro perate machines omeprazole 20 mg tablet,delayed release take 1 tablet by oral route every day 1 tablet - Active cyclobenzaprine 10 mg tablet take 1 tablet by oral route 2 times every day as needed 10 MG - Active PRN for pain, avoid driving or operate machines Vitamin D2 50,000 unit capsule take 1 capsule by oral route every week - Active Ventolin HFA 90 mcg/actuation aerosol inhaler inhale [...] Copied on Encounter OFFICE/OUTPA TIENT VISIT, EST [facility], [address] [place], [place], [address], tel:[phone] [facility] COPd (chief complaint) back apin1 (chief complaint) CAD1 (chief complaint) COPDFamily history of ischemic cardiac diseaseGERD w/ esophagitisLumbago 7 Sudhakar Cano. [address], [place], [place], [address] , [place]. tel:[phone] Referring Provider: Abdon Latham, [place], [place], [address]. tel:[phone] [facility], [address], [place], [place], [address], tel:[phone] [facility] No Information 7 Sudhakar Gallagher [address], [place], [place], [address] , [place]. tel:[phone] OFFICE/OUTPA TIENT VISIT, EST [facility], [address], [place], [place], [address], [place] [phone] [facility] back pain1 (chief complaint) gERD1 (chief complaint) GERD w/ esophagitisChronic pain syndrome Chuy- 7 Sudhakar Cano. [address], [place], [place], [address] , [place]. [phone] Referring Provider: Abdon Latham [address], [place], [place], [address]. tel:[phone] OFFICE/OUTPA TIENT VISIT, EST [facility], [address], [place], [place], [address], [place] [phone] [facility] back pain1 (chief complaint) HLP (chief complaint) family CAD (chief complaint) HyperlipidemiaLumba goTobacco useFamily history of ischemic cardiac disease 7 Sudhakar Cano. [address], [place], [place], [address] , [place]. [phone] Referring Provider: Abdon Latham [address], [place], [place], [address]. tel:[phone] PREV VISIT, EST, AGE 40-64 [facility], [address], [place], [place], [address], [place] tel:[phone] [facility] Physical (chief complaint) Encounter for general adult medical exam w abnormal findingsCOPDGERD with esophagitisChronic pain syndrome Jun-0 7 Sudhakar Cano. [address], [place], [place], [address] , [place]. tel:[phone] Referring Provider: Abdon Latham [address], [place], [place], [address]. tel:[phone] OFFICE/OUTPA TIENT VISIT, EST [facility], [address], [place], [place], [address], [place] tel:[phone] [facility] back pain1 (chief complaint) GERD1 (chief complaint) COPD1 (chief complaint) weight gain1 (chief complaint) Chronic pain syndromeCOPDAbnorma l weight gainGERD with esophagitis 7 Sudhakar Cano. [address], [place], [place], [address] , [place]. tel:[phone] Referring Provider: Abdon Latham [address], [place], [place], [address]. tel:[phone] OFFICE/OUTPA TIENT VISIT, [facility], [address], [place], [place], [address], [place] tel:[phone] [facility] anxiety1 (chief complaint) back pain1 (chief complaint) cough1 (chief complaint) alcohol1 (chief complaint) COPDLumbagoDepressi onAlcohol dependence, in remission Sudhakar Gallagher [address], [place], [place], [address] , [place]. tel:[phone] Referring Provider: Abdon Latham [address], [place], [place], [address]. tel:[phone] OFFICE/OUTPA TIENT VISIT, [facility], [address], [place], [place], [address], [place] tel:[phone] [facility] back pain1 (chief complaint) osteopenia 1 (chief complaint) anxiety1 (chief complaint) sick (chief complaint) Acute upper respiratory infection, unspecifiedLumbagoO ther specified disorder of bone densityDepression 7 Sudhakar Gallagher [address], [place], [place], [address] , [place]. tel:[phone] Referring Provider: Abdon Latham [address], [place], [place], [address]. tel:[phone] OFFICE/OUTPA TIENT VISIT, [facility], [address], [place], [place], [address], [place] tel:[phone] [facility] chronic pain (chief complaint) sick1 (chief complaint) Chronic pain syndromeViral infection, unspecified 6 6 Sudhakar Cano. [address], [place], [place], [address] , [place]. tel:[phone] Referring Provider: Abdon Latham [address], [place], [place], [address]. tel:[phone] OFFICE/OUTPA TIENT VISIT, [facility], [address], [place], [place], [address], [place] tel:[phone] [facility] back pain1 (chief complaint) anxiety1 (chief complaint) Chronic pain syndromeGeneralized Anxiety Disorder 0 6 Sudhakar Cano. [address], [place], [place], [address] , [place]. [phone] Referring Provider: Abdon Latham [address], [place], [place], [address]. tel:[phone] OFFICE/OUTPA TIENT VISIT, [facility], [address], [place], [place], [address], [place] tel:[phone] [facility] back pain1 (chief complaint) GERD1 (chief complaint) depression 1 (chief complaint) LumbagoDepressionGE RD with esophagitis 3 6 Sudhakar Gallagher [address], [place], [place], [address] , [place]. [phone] Referring Provider: Abdon Latham [address], [place], [place], [address]. tel:[phone] OFFICE/OUTPA TIENT VISIT, [facility], [address], [place], [place], [address], [place] tel:[phone] [facility] back apin1 (chief complaint) osteonpeni a1 (chief complaint) Chronic pain syndromeOther specified disorder of bone density Sep 5 6 Sudhakar Cano. [address], [place], [place], [address] , [place]. tel:[phone] Referring Provider: [address], [place], [place], [address]. tel:[phone] OFFICE/OUTPA TIENT VISIT, [facility], [address], [place], [place], [address], [place] tel:[phone] [facility] GERD1 (chief complaint) alcohol1 (chief complaint) back pain1 (chief complaint) HLP (chief complaint) Chronic pain syndromeGERD with esophagitisAlcohol dependence, uncomplicatedHyperl ipidemia 6 Sudhakar Cano. [address], [place], [place], [address] , [place]. tel:[phone] Referring Provider: Abdon Latham [address], [place], [place], [address]. tel:[phone] OFFICE/OUTPA TIENT VISIT, [facility], [address], [place], [place], [address], [place] tel:[phone] [facility] back pain1 (chief complaint) Chronic pain syndrome 6 Sudhakar Cano. [address], [place], [place], [address] , [place]. tel:[phone] Referring Provider: Jerome De La Fuente [address], [place], [place], [address]. tel:[phone] OFFICE/OUTPA TIENT VISIT, [facility], [address], [place], [place], [address], [place] tel:[phone] [facility] back apin (chief complaint) osteopenia (chief complaint) LumbagoDisorder of bone, unspecified 6 Sudhakar Cano. [address], [place], [place], [address] , [place]. tel:[phone] Referring Provider: Abdon Latham [address], [place], [place], [address]. tel:[phone] OFFICE/OUTPA TIENT VISIT, [facility], [address], [place], [place], [address], [place] tel:[phone] [facility] HTN (chief complaint) back apin (chief complaint) osteopenia (chief complaint) HLP (chief complaint) HyperlipidemiaVitam in D deficiency, unspecifiedLumbagoE ssential (primary) hypertension 6 Sudhakar Cano. [address], [place], [place], [address] , [place]. tel:[phone] Referring Provider: Abdon Latham [address], [place], [place], [address]. tel:[phone] PREV VISIT, EST, AGE 40-64 [facility], [address], [place], [place], [address], [place] tel:[phone] [facility] Physical (chief complaint) Encounter for general adult medical exam w abnormal findingsGERD with esophagitisLumbagoO ther specified disorder of bone densityEncntr for general adult medical exam w/o abnormal findings 6 Sudhakar Cano. [address], [place], [place], [address] , [place]. [phone] Referring Provider: Abdon Latham [address], [place], [place], [address]. tel:[phone] OFFICE/OUTPA TIENT VISIT, EST [facility], [address], [place], [place], [address], [place] tel:[phone] [facility] back pain1 (chief complaint) osteopenia (chief complaint) GERD1 (chief complaint) GERD with esophagitisLumbagoO ther specified disorder of bone densityEncounter for oth screening for malignant neoplasm of breast 6 Sudhakar Cano. [address], [place], [place], [address] , [place]. [phone] Referring Provider: Abdon Latham [address], [place], [place], [address]. tel:[phone] OFFICE/OUTPA TIENT VISIT, EST [facility], [address], [place], [place], [address], [place] tel:[phone] [facility] back pain1 (chief complaint) osteopenia 1 (chief complaint) LumbagoOth disrd of bone density and structure, left thigh 5 Sudhakar Cano. [address], [place], [place], [address] , [place]. tel:[phone] Referring Provider: Jerome De La Fuente, [address], [place], [place], [address]. tel:[phone] OFFICE/OUTPA TIENT VISIT, [facility], [address], [place], [place], [address], [place] [phone] [facility] back pain (chief complaint) osteopenia 1 (chief complaint) tobacco (chief complaint) GERD1 (chief complaint) Oth disrd of bone density and structure, left thighOther spondylosis, lumbar regionTobacco useGERD with esophagitis 5 Sudhakar Cano. [address], [place], [place], [address] , [place]. [phone] Referring Provider: Abdon Latham [address], [place], [place], [address]. tel:[phone] OFFICE/OUTPA TIENT VISIT, [facility], [address], [place], [place], [address], [place] [phone] [facility] tobacco1 (chief complaint) back pain1 (chief complaint) Other spondylosis, lumbar regionEncounter for screening for osteoporosisTobacco use 5 Sudhakar Gallagher [address], [place], [place], [address] , [place]. [phone] Referring Provider: Abdon Latham [address], [place], [place], [address]. tel:[phone] OFFICE/OUTPA TIENT VISIT, [facility], [address], [place], [place], [address], [place] [phone] [facility] back apin (chief complaint) GERD (chief complaint) tobacco (chief complaint) HTN (chief complaint) LumbagoGERD - Gastro-esophageal reflux diseaseBP - High blood pressureTobacco abuse 5 Sudhakar Cano. [address], [place], [place], [address] , [place]. tel:[phone] Referring Provider: Abdon Latham [address], [place], [place], [address]. tel:[phone] OFFICE/OUTPA TIENT VISIT, [facility], [address], [place], [place], [address], [place] tel:[phone] [facility] back pain (chief complaint) adrenal lesion (chief complaint) LFT (chief complaint) Unspecified chronic liver disease without mention of alcoholEsophageal refluxLumbagoBenign neoplasm of adrenal gland 5 Sudhakar Gallagher [address], [place], [place], [address] , [place]. tel:[phone] Referring Provider: Abdon Latham [address], [place], [place], [address]. tel:[phone] OFFICE/OUTPA TIENT VISIT, [facility], [address], [place], [place], [address], [place] tel:[phone] [facility] lFT (chief complaint) adrenal lesion (chief complaint) back pain (chief complaint) Unspecified chronic liver disease without mention of alcoholLumbagoBenig n neoplasm of adrenal glandGERD 5 Sudhakar Gallagher [address], [place], [place], [address] , [place]. tel:[phone] Referring Provider: Abdon Latham [address], [place], [place], [address]. tel:[phone] PREV VISIT, EST, AGE 40-64 [facility], [address], [place], [place], [address], [place] tel:[phone] [facility] Physical (chief complaint) Routine Medical ExamRoutine Medical Exam 5 Sudhakar Gallagher [address], [place], [place], [address] , [place]. tel:[phone] Referring Provider: Abdon Latham [address], [place], [place], [address]. tel:[phone] OFFICE/OUTPA TIENT VISIT, [facility], [address], [place], [place], [address], [place] tel:[phone] [facility] back pain (chief complaint) gastritis (chief complaint) Acute gastritis with hemorrhageLumbago 4 Sudhakar Cano. [address], [place], [place], [address] , [place]. tel:[phone] Referring Provider: Abdon Latham [address], [place], [place], [address]. tel:[phone] OFFICE/OUTPA TIENT VISIT, [facility], [address], [place], [place], [address], [place] tel:[phone] [facility] back pain (chief complaint) Lumbago 4 Sudhakar Cano. [address], [place], [place], [address] , [place]. tel:[phone] Referring Provider: Abdon Latham [address], [place], [place], [address]. tel:[phone] OFFICE/OUTPA TIENT VISIT, [facility], [address], [place], [place], [address], [place] tel:[phone] [facility] abdominal pain (chief complaint) Abdominal PainHelicobacter pylori (h. pylori) infectionGERD 4 Sudhakar Cano. [address], [place], [place], [address] , [place]. tel:[phone] Referring Provider: Abdon Latham [address], [place], [place], [address]. tel:[phone] OFFICE/OUTPA TIENT VISIT, [facility], [address], [place], [place], [address], [place] tel:[phone] [facility] abdominal pain (chief complaint) Unspecified chronic liver disease without mention of alcoholAbdominal Pain 4 Sudhakar Cano. [address], [place], [place], [address] , [place]. tel:[phone] Referring Provider: Jerome De La Fuente, [address], [place], [place], [address]. tel:[phone] OFFICE/OUTPA TIENT VISIT, EST [facility], [address], [place], [place], [address], [place] tel:[phone] [facility] well woman (chief complaint) vitamin D (chief complaint) back pain (chief complaint) LumbagoUnspecified vitamin d deficiency 4 Sudhakar Cano. [address], [place], [place], [address] , . tel:[phone] Referring Provider: Abdon Latham [address], [place], [place], [address]. tel:[phone] PREV VISIT, EST, AGE 40-64 [facility], [address], [address], [place] tel:[phone] [facility] Physical (chief complaint) Dietary surveillance and counselingRoutine Medical ExamRoutine Medical Exam 4 Sudhakar Cano. [address], [place], [place], [address] , [place]. tel:[phone] Family History Family Member Type Diagnosis Age [...] was referred to some pain management in [facility] but she called and was told the pain managment docor quit?? Ptdoes not know the name of the pain doctor either. CAD1 (chief complaint). Description: Pt has strong family history of CAD. Pt denies any chest pain.Pt also never seen the logger driving horses. Pt is extremely noncompliant Plan Of Treatment Date Type Action Status Goal Influenza vaccine. Due on due Goal Td vaccine. Due on 17 due Goal Sigmoidoscopy. Due on due Goal Pap/HPV testing. Due on due Goal Tdap. Due on due Goal Depression screening. Due on due Goal FOBT. Due on due Goal Influenza vaccine. Due on due Goal Depression screening. Due on due Goal Tdap. Due on due Goal Pap/HPV testing. Due on due Goal FOBT. Due on due Goal Sigmoidoscopy. Due on due Goal Td vaccine. Due on 17 due Goal FOBT. Due on due Goal Tdap. Due on due Goal Sigmoidoscopy. Due on due Goal Td vaccine. Due on due Goal Pap/HPV testing. Due on due Goal Influenza vaccine. Due on Ma due Goal Depression screening. Due on due Goal Td vaccine. Due on due Goal Depression screening. Due on due Goal Tdap. Due on [...] due Goal Sigmoidoscopy. Due on due Goal Influenza vaccine. Due on due Goal FOBT. Due on due Goal Influenza vaccine. Due on due Goal Tdap. Due on due Goal Pap/HPV testing. Due on due Goal Td vaccine. Due on 16 due Goal Depression screening. Due on due [...] Goal Depression screening. Due on due Goal Depression screening. Due [...] Td vaccine. Due on 16 due Goal Depression screening. Due on due Goal Influenza vaccine. Due on due Goal Sigmoidoscopy. Due on due Goal Td vaccine. Due on 16 due Goal Tdap. Due on due Goal Pap/HPV testing. Due on due Goal FOBT. Due on due Goal FOBT. Due on [...] Td vaccine. Due on 15 due Goal Influenza vaccine. Due on due [...] due Goal FOBT. Due on due Goal Colonoscopy. Due on [...] disease) ordered Referral Referred To: PINA CHÁVEZ [id number] [facility]
[address] [place], [place], [id number] Ordered: Referrals: PINA CHÁVEZ. Evaluate and treat ordered Referral Ordered: Gilbert Naidu (related to Chronic pain syndrome) ordered Referral Ordered: MRI LUMBAR SPINE W/O DYE ordered Referral Ordered: Gilbert Naidu (related to Lumbago) ordered Referral Referred To: Gilbert Naidu [address] [facility]
[address] [place], [id number] Ordered: Referrals: Gilbert Naidu. Evaluate and treat [...] chest pain. Pt also never seen the logger driving horses. Pt is extremely noncompliant back apin1 Pt has chronic l ow back pain. pt denies any worsening pain. Pt denies any loss of bladder control. Pt was told she is not surgical candiate enrico she was referred to some pain management in [facility] but she called and was told the [...] told she is not [facility]idaet. [facility] CAD Pt has strong fa ana history of CAD. Pt denies any chest pain. Pt smokes with mild HLP back pain1 Pt has chronic l ow back pain. Pt denies any loss of bowel or bladder control. Pt denies any worsening pain. Pt has 7/10 pain HLP Pt has HLP. Pt i s not on any meds. Her lipd profile is slighlty high Physical Pt needs annual physical. Pt has [...] ga in. Pt is not very active. cough1 Pt c/o productiv e coughing for several weeks now. Pt still smoking about 1/2 PPD. Pt denies any chest pain. Pt feels SOB once a while alcohol1 Pt quit alcohol completely recently anxiety1 Pt states that h er anxiety [...] Pt denies any suicidal or homicidal thought back pain1 Pt has chronic l ow back pain. Pt denies any loss of bowel or bladde control. Pt denies any worsening effie. Pt has 7/10 pain Pt takes norco for pain along with flexeril. Pt states that her pain has been getting worse. Pt c/o intermittent sciatica. Pt notices some leg numbness GERD1 Pt has GERD. Pt takes omeprazole and doing ok. Pt denies any abd pain or any naseua, vomiting, diarrhea depression1 Pt states that s he feels [...] denies any abd pain or any GERD. LFT LFT and hepatiti s ok adrenal lesion benign on CT sca n back pain Additional infor mation: Pt has chronic LBP Pt denies any loss of bowel or bladder control. Pt unable to find pain managment. Pt failed PT. Instructions Date Instruction Additional Infor mation Quit smoking Related to COPD Prescribed Diet Educ ation/Lifestyle Education Regarding Diet Related to Dietary Surveillance and Counseling Prescribed Activity and Exercise Education Related to Dietary Surveillance and Counseling Prescribed Activity and Exercise Education Related to Dietary Surveillance and Counseling Prescribed Diet Educ ation/Lifestyle Education Regarding Diet Related to Dietary Surveillance and Counseling Dietary counseling Related to Di etary surveillance counseling Decrease caloric intake Related to Dietary surveillance counseling Assessments Type Assessment Date assessment COPD assessment Family history of ischemic cardi ac disease assessment GERD w/ esophagitis assessment Lumbago Mental Status Date Cognitive Assessment Orientation - [place] ed to time, place, person, situation.
--- OUTSIDE RECORDS SUMMARY | 2024-07-01 03:13 | XMS_ITS | Encounter Summary ---
Author Organization [facility] Address Formerly [facility] [place] [address] Care Team Providers Care Special Education Educational Assistant Name Role Phone Shawn Mcclure MD Primary Care Provider [phone] Encounter Details Date Type Department Care Team (Late st Contact Info) Description 03/10/2020 Prep for Procedure [facility] [place], [place] [id number] Abe Barros MD [address] [id number] Social History Tobacco Use Types Packs/Day Years Used Date Smoking Tobacco: Every Day Cigarettes Smokeless Tobacco: Never Alcohol Use Standard Drinks/Week Comments Yes 0 (1 standard drink = 0.6 oz pur e alcohol) occas. 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 Gender Identity Not on file Sexual Orientation Not on file documented as of this encounter Plan of Treatment Not on file documented as of this encounter Results * PRE-SURGICAL/PRE-PROCEDURE CORONAVIRUS (COVID 19) (03/14/2020 9:07 AM TURNING MACHINE OPERATOR HELPER) CORONAVIRUS SARS COV 2 PCR (RESP) NOT DETECTED NOT DETECTED 03/15/2020 10:26 AM TURNING MACHINE OPERATOR HELPER [facility] Comment: A Not Detected (negative) test result [...] providers and patients using the following websites: https://www.[employer].uStudio/home/Covid-19/HCP/QuestIVD/fact- sheet.html https://www.[employer].uStudio/home/Covid-19/Patients/ Quest[employer]D/fact-sheet.html This test has been authorized by the FDA under an Emergency Use Authorization (EUA) for use by authorized laboratories. Due to the current public health emergency, [facility] is receiving a high volume of samples [...] about COVID-19 can be found at the [facility] website: www.[employer].uStudio/Covid19. Test performed at [facility] [address] [address] [place] [address] Director: CATY CONN DO,MPH FIRST TEST YES 03/14/2020 10:34 AM [facility] EMPLOYED IN HEALTHCARE UNKNOWN 03/14/2020 10:34 AM [facility] SYMPTOMATIC DEFINED BY CDC NO 03/14/2020 10:34 AM [facility] DATE OF SYMPTOM ONSET UNKNOWN 03/14/2020 10:57 AM [facility] HOSPITALIZATION STATUS NO 03/14/2020 10:34 AM TURNING MACHINE OPERATOR HELPER [facility] PATIENT IN ICU NO 03/14/2020 10:34 AM TURNING MACHINE OPERATOR HELPER [facility] 03/14/2020 10:34 AM TURNING MACHINE OPERATOR HELPER [facility] NOT 03/14/2020 10:34 AM TURNING MACHINE OPERATOR HELPER [facility] PATIENT'S RACE WHITE OR 03/14/2020 10:34 AM TURNING MACHINE OPERATOR HELPER [facility] Comment:OTHER ETHNICITY NONHISPANIC 03/14/2020 10:34 AM TURNING MACHINE OPERATOR HELPER [facility] SOURCE (QST) NASOPHARYNGEAL SWAB 03/14/2020 10:34 AM TURNING MACHINE OPERATOR HELPER [facility] NASOPHARYNGEAL SWAB / Unknown 03/14/2020 9:07 AM TURNING MACHINE OPERATOR HELPER us Abe Barros MD MICROBIOLOGY - GENERAL EMI SOUZA Final Result [facility] [address] [place] [address], [employer] [place] [address], documented in this encounter Visit Diagnoses Diagnosis Dysphagia- Primary Dysphagia, unspecified documented in this encounter Additional Health Concerns Infection Onset Date Last Indicated Resolved Time COVID-19 Rule Out 03/14/2020 03/14/2020 03/15/2020 10:26 AM TURNING MACHINE OPERATOR HELPER COVID-19 Rule Out 06/29/2020 06/29/2020 06/30/2020 6:46 AM CDT COVID-19 Rule Out 09/16/2021 09/16/2021 09/17/2021 2:14 AM CDT COVID-19 Rule Out 11/04/2021 11/04/2021 11/05/2021 10:45 AM CDT documented as of this encounter Care Teams Special Education Educational Assistant Relationship Specialty Start Date End Date Shawn Mcclure MD [address] [place] [address] PCP - General FAMILY PRACTICE 03/17/20 documented as of this encounter
--- OUTSIDE RECORDS SUMMARY | 2024-07-01 03:13 | XMS_ITS | Clinical Summary ---
Author Organization [facility] Address [address] [place] [address] Care Team Providers Care Restaurant Manager Name Role Phone Shawn Mcclure MD Primary Care Provider [phone] Source Comments [facility],non-owned Affiliates and Associated Physician Practices is amultiple site organization consisting of ambulatory clinics and hospital sitesin [place], [place]. This disclosure is being madepursuant to the Care Everywhere program and may not contain all information available regarding this patient. Last updated 17.[facility] Allergies Active Allergy Reactions Criticality Noted Date Comments Codeine 02/12/2016 Medications * Be aware that medications may not be up to date on this document. Alwaysverify current medications with the patient. Cholecalciferol (VITAMIN D3 PO) Acti ve albuterol HFA (VENTOLIN HFA) 108 (90 BASE) MCG/ACT inhalerIndicatio ns:Acute bronchitis, unspecified organism,Tobacco abuse Inhale 2 Puffs by mouth every 6 hours as needed for Shortness of Breath, Wheezing or Cough 1 Inhaler 7 Active RaNITidine HCl (ZANTAC PO) Active mometasone-formo terol (DULERA) 100-5 MCG/ACT inhaler Inhale 2 puffs by mouth 2 times daily Active IBUPROFEN PO Active Active Problems No known active problems Social History Tobacco Use Types Packs/Day Years Used Date Smoking Tobacco: Every Day Cigarettes Smokeless Tobacco: Never Tobacco Cessation:Ready to Q uit: Yes; Counseling Given: Yes Comments No Sex and Gender Information Value Date Recorded Sex Assigned at Not on file 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 Gender Identity Not on file Sexual Orientation [...] SCREENING 1965 LIPID TESTING 1965 MAMMOGRAM 1965 HIV SCREENING 10/04/1978 HEPATITIS C SCREENING 09/30/1981 DTAP/TDAP/TD VACCINES (1 - Tdap) 10/04/1982 PNEUMOCOCCAL VACCINE 50+ (1 of 1 - PCV) 10/04/2013 ZOSTER VACCINE (1 of 2) 10/04/2013 SCREENING FOR DIABETES 04/03/2017 COVID-19 VACCINE ( - 2023-2 5 season) 2023 DEPRESSION SCREENING 03/12/2024 INFLUENZA VACCINE (Season Ended) 2024 Respiratory Syncytial Virus (RSV) Vaccine Pt: or [...] patient's age to complete [place] [address] MEDICAID - OUT OF STATE MEDICARE MEDICAID - [place] MEDICARE [facility] Care Teams Restaurant Manager Relationship Specialty Start Date End Date Shawn Mcclure MD [address] [place] [address] [address] [place] [address] PCP - General 09/26/19
--- OUTSIDE RECORDS SUMMARY | 2024-07-01 03:14 | XMS_ITS | CONTINUITY OF CARE DOCUMENT ---
Author Name jorge patel Address Unknown Organization [facility] Address [address] [place] [address] Phone [phone] Care Team Providers Care Supervisor Stripping Name Role Phone Giorgi Brown MD Unavailable STEFANY HOLLINS MD Unavailable [phone] STEFANY HOLLINS MD Unavailable [phone] INSURANCE PROVIDERS Payer name Policy type / Coverage type [place] red democrat [employer] FAMILY [employer] Medicaid 0 [id number] [place] MED[place] Medicare [id number]
--- OUTSIDE RECORDS SUMMARY | 2024-07-01 03:14 | XMS_ITS | Clinical Summary ---
Author Organization [facility] Address [facility] [place] [address] Care Team Providers Care Director Of Search Engine Optimization Name Role Phone Shawn Mcclure MD Primary Care Provider [phone] Allergies Active Allergy Reactions Criticality Noted Date [...] MCG/ACT inhalerIndicatio ns:Pulmonary emphysema, unspecified emphysema type ([facility]) INHALE 2 PUFFS BY MOUTH EVERY 4 HOURS NEEDED FOR WHEEZING FOR SHORTNESS OF BREATH 18 g 3 Active Active Problems Problem Noted Date Diagnosed Date Chronic obstructive pulmonar y disease, unspecified COPD type ([facility]) 05/03/2020 Cigarette nicotine dependenc e with nicotine-induced disorder 05/03/2020 Physical deconditioning 11/15/2017 GERD (gastroesophageal reflux disease) 7 History of snoring 01/11/2017 Obesity 01/11/2017 Pulmonary emphysema ([facility]) 01/11/2017 Disorder of bone 08/19/2015 Benign [...] on file Legal Sex 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 Gender Identity Not on file Sexual [...] Colonoscopy (10 Years) 1965 Annual Physical 10/04/1966 Hepatitis C 10/04/1981 DTaP, Tdap and Td Vaccines ( 1 - Tdap) 10/04/1982 Pneumococcal Vaccine: 50+ Ye ars (1 of 2 - PCV) 10/04/1982 Cervical Cancer Screening Pa p with HPV Testing (Age 30 to 64) Every 5 Years 10/04/1993 Cervical Cancer Screening with HPV 10/04/1993 Mammogram Screening 2003 Zoster Vaccines (1 of 2) 10/04/2013 RSV Immunization or 60+ Years (1 - Risk 60-74 years 1-dose series) 2023 COVID-19 Vaccine (1 - 2023-2 5 season) 2023 PHQ-2 (Physician [place]) 03/12/2024 Meningococcal B Vaccine Aged Out No l onger eligible based on patient's age to complete this topic Meningococcal Vaccine Aged Out No antelmo susanne eligible based on patient's age to complete this topic RSV Immunizations Under 20 Months Aged Out No longer eligible based on patient's age to complete this topic Insurance [employer] Care Teams Director Of Search Engine Optimization Relationship Specialty Start Date End Date Shawn Mcclure MD [address] [place] [id number] PCP - General FAMILY PRACTICE 03/17/20
[2024-07-01 13:57] VITALS: BP 164/90; PULSE 81; RESP 16; TEMP 37.1; O2SAT 97; BMI 28.6
[2024-07-01] MEDS: LACTATED RINGERS 1,000 ML 150 ML IV CONT (14:05)
--- NOTE | 2024-07-01 14:12 | WPDANESEPPF ---
Anes - Initial Pre Proc Eval Procedure: Operation Date: 07/01/24 14:30 Proposed Procedures p Esophagogastroduodenoscopy - Bebo Viveros MD Date/Time: 07/01/24 14:12 Surgeon: Bebo Viveros MD Pre Op Diagnosis: Gastro-esophageal reflux disease without esophagit Patient Data Age: 58 Gender: F Height: 1.75 m Weight: 88.1 kg Last Vital Signs Temp 37.1 C 07/01/24 13:57 Pulse 81 07/01/24 13:57 Resp 16 07/01/24 13:57 BP 164/90 H 07/01/24 13:57 Pulse Ox 97 07/01/24 13:57 O2 Del Method Room Air 07/01/24 13:57 Allergies Allergy/AdvReac Type Severity Reaction Status Date / Time codeine Allergy Unknown Chest Pain Verified 07/01/24 13:56 Home Medications ?Medication ?Instructions ?Recorded ?Confirmed ?Type albuterol sulfate 90 mcg/actuation 1 - 2 puff inhalation Q4-6H PRN 05/02/24 06/26/24 Rx aerosol inhaler shortness of breath or wheezing #8.5 grams fluticasone fur. 100 mcg-umeclid 1 inh inhalation DAILY #60 ea 05/02/24 06/26/24 Rx 62.5 mcg-vilant 25 mcg inhalat.powder (Trelegy Ellipta) budesonide 160 mcg-glycopyr 9 2 inh inhalation BID #10.7 grams 05/27/24 07/01/24 Rx mcg-formot 4.8 mcg/actuation HFA inhaler (Breztri Aerosphere) budesonide 160 mcg-glycopyr 9 160-9-4.8 mcg/actuation Hfa 05/27/24 07/01/24 Sample mcg-formot 4.8 mcg/actuation HFA Aerosol Inhaler#2 Samples inhaler (Breztri Aerosphere) ibuprofen 200 mg tablet 200 mg PO QID PRN pain 06/09/24 07/01/24 History omeprazole 40 mg capsule,delayed 40 mg PO DAILY #30 caps 06/09/24 07/01/24 Rx release Patient hx anesthesia problems: none Family hx anesthesia problems: none Results Review: All pre-operative results and documents have been reviewed as part of the pre-operative evaluation. [facility] Past Medical History Medical History Lateral meniscus tear Degenerative joint disease of knee Medial meniscus tear Popliteal cyst Emphysema of lung Shortness of breath Sleep disorder Stomach ulcer Stomach pain Vision abnormalities Headache Weight gain Right knee pain History of hyperlipidemia History of gastroesophageal reflux (GERD) Surgical History Surgical History (Updated 07/01/24 @ 14:12 by Chencho Pandey MD) H/O arthroscopic knee surgery History of carpal tunnel release Family History Family History Other Arthritis Heart disease Social History Social History Smoking packs per day: 1 Smoking cigarettes per day: 20.0 Years smoked: 30 Smoking pack-years: 30.00 Smoking status: Current every day smoker Tobacco type: cigarettes Alcohol intake: current Drinks per week: 2 Substance use: never Substance use type: does not use Living arrangements: with family Spiritual care concerns: No Anes - Eval Final PreProcedure Day of Procedure 07/01/24 14:12 Patient weight: overweight Heart: regular rate and rhythm Lungs: clear to auscultation Airway: Mallampati scale class II Neurological: alert and oriented Last oral intake: >/= 8 hours ASA classification: III Emergent: no Anesthetic plan: proceed Anesthesia type and monitoring: general GIVS and standard monitoring Results Review: All pre-operative results and documents have been reviewed as part of the pre-operative evaluation. Informed Consent: The patient's anesthetic plan and its attendant risks and benefits were discussed with the patient/family/POA. Questions were solicited and answers provided to the satisfaction of the patient/family/POA.
--- NOTE | 2024-07-01 15:13 | PM.IMHP ---
H&P: HPI History of Present Illness Date/Time: 07/01/24 15:13 Chief Complaint: Dysphagia Narrative: this patient has suffered from refill for several years, and had an EGD in 2021, showing a distal stenosis and a hiatal hernia, requiring dilation with a dilator 15-18 balloon. Review of Systems Review of Systems: All systems reviewed & are unremarkable except as noted in HPI and below PMFSH Past Medical History Medical History Lateral meniscus tear Degenerative joint disease of knee Medial meniscus tear Popliteal cyst Emphysema of lung Shortness of breath Sleep disorder Stomach ulcer Stomach pain Vision abnormalities Headache Weight gain Right knee pain History of hyperlipidemia History of gastroesophageal reflux (GERD) Surgical History Surgical History (Updated 07/01/24 @ 14:12 by Chencho Pandey MD) H/O arthroscopic knee surgery History of carpal tunnel release Family History Family History Other Arthritis Heart disease Social History Social History Smoking packs per day: 1 Smoking cigarettes per day: 20.0 Years smoked: 30 Smoking pack-years: 30.00 Smoking status: Current every day smoker Tobacco type: cigarettes Alcohol intake: current Drinks per week: 2 Substance use: never Substance use type: does not use Living arrangements: with family Spiritual care concerns: No Meds Home Medications and Allergies Home Medications ?Medication ?Instructions ?Recorded ?Confirmed ?Type albuterol sulfate 90 mcg/actuation 1 - 2 puff inhalation Q4-6H PRN 05/02/24 06/26/24 Rx aerosol inhaler shortness of breath or wheezing #8.5 grams fluticasone fur. 100 mcg-umeclid 1 inh inhalation DAILY #60 ea 05/02/24 06/26/24 Rx 62.5 mcg-vilant 25 mcg inhalat.powder (Trelegy Ellipta) budesonide 160 mcg-glycopyr 9 2 inh inhalation BID #10.7 grams 05/27/24 07/01/24 Rx mcg-formot 4.8 mcg/actuation HFA inhaler (Breztri Aerosphere) budesonide 160 mcg-glycopyr 9 160-9-4.8 mcg/actuation Hfa 05/27/24 07/01/24 Sample mcg-formot 4.8 mcg/actuation HFA Aerosol Inhaler#2 Samples inhaler (Breztri [employer]) ibuprofen 200 mg tablet 200 mg PO QID PRN pain 06/09/24 07/01/24 History omeprazole 40 mg capsule,delayed 40 mg PO DAILY #30 caps 06/09/24 07/01/24 Rx release Allergies Allergy/AdvReac Type Severity Reaction Status Date / Time codeine Allergy Unknown Chest Pain Verified 07/01/24 13:56 Vital Signs Vital Signs - 24 hr 07/01/24 13:57 Temperature 98.7 F Pulse Rate 81 Respiratory Rate 16 Blood Pressure 164/90 H Pulse Oximetry 97 Oxygen Delivery Room Air Exam Const: General: cooperative and healthy appearing Resp: Effort & Inspection: normal respiratory effort and able to speak in complete sentences Auscultation: clear to auscultation bilaterally Cardio: Rate: regular rate Rhythm: regular rhythm GI: Inspection: normal to inspection GI Palp: No No hepatosplenomegaly present Auscultation: normal bowel sounds Rectal Exam: deferred Skin: General skin exam: normal color Psych: Appearance: grossly normal Mental Status: mental status grossly normal Assessment and Plan Assessment and plan (1) Dysphagia: Qualifiers: Dysphagia type: esophageal phase Qualified Code(s): R13.19 - Other dysphagia Code(s): R13.10 - Dysphagia, unspecified Status: Acute Assessment and Plan: The patient is deemed a good candidate for the procedure. Consent signed. Will proceed.
[2024-07-01 15:30] VITALS: BP 128/76; PULSE 76; RESP 18; O2SAT 98
[2024-07-01 15:40] VITALS: BP 153/84; PULSE 74; RESP 18; O2SAT 98
[2024-07-01 15:50] VITALS: BP 160/87; PULSE 69; RESP 18; O2SAT 98
== END 2024-07-01 16:05 | disposition home or self-care (01) ==
PROVIDERS: Visit Provider Internal Medicine Gastroenterology
PROC: 0DJ08ZZ Inspection of Upper Intestinal Tract, Via Natural or Artificial Opening Endoscopic (ICD-10-PCS; CPT 43450; principal; 2024-07-01 14:30)
DX: K22.2 Esophageal obstruction (principal); K29.30 Chronic superficial gastritis without bleeding; K44.9 Diaphragmatic hernia without obstruction or gangrene; K21.9 Gastro-esophageal reflux disease without esophagitis; E78.5 Hyperlipidemia, unspecified; J43.9 Emphysema, unspecified; G47.9 Sleep disorder, unspecified; M17.10 Unilateral primary osteoarthritis, unspecified knee; F17.210 Nicotine dependence, cigarettes, uncomplicated; Z79.51 Long term (current) use of inhaled steroids; Z79.1 Long term (current) use of non-steroidal anti-inflammatories (NSAID); Z98.890 Other specified postprocedural states; Z82.49 Family history of ischemic heart disease and other diseases of the circulatory system
CPT/HCPCS: 43450; J2003; J2704; J7120

== ENCOUNTER 2024-09-16 07:15 | Outpatient (CLI) | payer MEDICARE, MEDICAID, SELFPAY ==
--- NOTE | ~2024-09-16 | XR_ITS ---
EXAM/ PROCEDURE: XR sacrum coccyx min 2V - 09/16/2024 7:50 CDT HISTORY: 58 years old Female with M54.9 - Dorsalgia, unspecified COMPARISON: None available TECHNIQUE: Three view(s) FINDINGS/ IMPRESSION: There are no fractures or dislocations.Joint space narrowing, subchondral sclerosis, subchondral cyst formation and osteophyte formation, compatible with mild osteoarthritis. Reviewed, dictated and finalized at location A.
--- NOTE | ~2024-09-16 | XR_ITS ---
Lumbosacral Spine: AP, oblique, and lateral views Clinical History: Pain Findings: The normal lordotic curve is maintained. No fracture. There is 4 mm anterolisthesis of L4 o kyrie L5. Intervertebral disc spaces are relatively well-preserved. There is severe facet arthropathy f rom L3 through S1. The sacroiliac joints are normally outlined. Impression: 4 mm anterolisthesis of L4 over L5. Extensive facet arthropathy, as above. Reviewed, dictated and finalized at location M. Impression: 4 mm anterolisthesis of L4 over L5. Extensive facet arthropathy, as above.
--- NOTE | ~2024-09-16 | MR_ITS ---
MRI of the lumbar spine Clinical History: Radiculopathy Technique: Axial T2-weighted images, and sagittal T1-weighted, T2-weighted, and T2 fat-sat images wer e acquired. Findings: There is no fracture or subluxation of the lumbar spine. Vertebral bodies maintain normal h eight and alignment. No bone marrow signal abnormality seen. At L1-L2, there is no disc bulge or herniation. No spinal canal stenosis or neural foraminal narrowin g. At L2-L3, there is minimal degenerative disc narrowing with minimal disc bulge. No spinal canal steno sis or neural foraminal narrowing. At L3-L4, there is minimal disc bulge with moderate facet arthropathy. No central canal stenosis or n eural foraminal narrowing. At L4-L5, there is minimal disc bulge with advanced facet arthropathy. There is minimal central canal stenosis. Neural foramina are preserved. At L5-S1, there is minimal disc bulge with severe facet arthropathy. No central canal stenosis. There is moderate left neural foraminal narrowing and severe right neural foraminal narrowing. Paravertebral soft tissues are unremarkable. Impression: Moderate to advanced degenerative spondylosis at L5-S1. Mild degenerative change in the remainder of the lumbar spine, as detailed above. Reviewed, dictated and finalized at location . Impression: Moderate to advanced degenerative spondylosis at L5-S1. Mild degenerative change in the remainder of the lumbar spine, as detailed wanda hopkins
== END 2024-09-16 07:16 | disposition home or self-care (01) ==
LOC: MICIMG 07:16
PROVIDERS: PCP Nurse Practitioner Adult Health; Visit Provider Nurse Practitioner Adult Health
DX: M48.061 Spinal stenosis, lumbar region without neurogenic claudication (principal); M47.26 Other spondylosis with radiculopathy, lumbar region; M51.379 Other intervertebral disc degeneration, lumbosacral region without mention of lumbar back pain or lower extremity pain
CPT/HCPCS: 72114; 72148; 72220

== ENCOUNTER 2024-10-07 02:19 | Day surgery (SDC) | payer MEDICARE, MEDICAID, SELFPAY ==
[2024-10-02 09:24] VITALS: BMI 29.5
--- NOTE | 2024-10-02 09:25 | PC.NURSE ---
Report to the Outpatient Waiting Room, entrance under the green pavilion located off [facility], at time _2pm_ on date _[id number]_. Planned Procedure Time: _3pm_.? Time changes happen often and if your time is changed the preop area will call you the afternoon before. - You and your visitor will be asked to self-screen and do not enter if you have any COVID symptoms. Please call surgeon if you need to reschedule. - A mask is optional within the hospital at this time. No smoking, or chewing tobacco (or any form of nicotine). Ok for breakfast and a light lunch. Nothing to eat or drink after 1pm. No chewing gum, candy or mints. Take only the following medications with a SIP of water on the morning of surgery: __Inhalers and Omeprazole DO NOT STOP ANY OF YOUR OTHER PRESCRIPTION MEDICATIONS PRIOR TO SURGERY EXCEPT THE FOLLOWING Hold all vitamins and supplements for 3 days per anesthesiologist. Medications to discontinue per physician ____Please ask Dr Chauhan's office about Ibuprofen if need to hold. Date to take last dose Please no make-up, nail tajik, hairspray, perfume, deodorant, or body powder the day of surgery.? No jewelry (including any body piercings) or valuables the day of surgery, leave them at home.? Please take a shower or bath the night before, or the morning of, surgery with an antibacterial soap.? Wear comfortable, loose fitting clothing. - Jewelry must be removed prior to entering the operating room.? Rings and piercings that are not removed may be cut off. - The hospital will not accept responsibility for valuables.? - Please leave all valuables, including medications, at home the day of surgery. If you are going home after surgery, a licensed newspaper delivery driver must drive you home.? - NO public transportation without another adult if you receive anesthesia. - We recommend that an adult stay with you for 24 hours following discharge. - We also recommend that you do not drive, make important decision, drink alcoholic beverages, or take any drugs that were not prescribed by your health care provider for at least 24 hours after your discharge time. Follow any additional instructions given to you from your surgeon. Telephone instructions given to __Rahda___and asked if any additional questions and then verbalized understanding. Patient advised to call surgeon office or pre surgery nurse liaison [phone] if any additional questions.
--- NOTE | ~2024-10-07 | XR_ITS ---
EXAMINATION: XR fluoroscopy no charge DATE: 10/07/2024 15:10 CDT INDICATION: BILATERAL L5-S1 TRANSFORAMINAL EPIDURAL STEROID INJECTION . TECHNIQUE: 6 fluoroscopic images and 5 cine clips of the lumbar spine were obtained during bilateral L5-S1 transforaminal epidural steroid injection. Fluoroscopy exposure time was 57.3 seconds. Air Kerm a 37.49 mGy. DAP 6.68 mGym2. COMPARISON: None FINDINGS/IMPRESSION: Fluoroscopic documentation of bilateral L5-S1 transforaminal epidural steroid injection. Please refer to the operative note for complete procedural details. Reviewed, dictated and finalized at location K.
--- OUTSIDE RECORDS SUMMARY | 2024-10-07 02:21 | XMS_ITS | Encounter Summary ---
Author Organization [facility] Address Formerly [facility] [place] [address] Care Team Providers Care Audio Visual Secretary Name Role Phone Shawn Mcclure MD Primary Care Provider [phone] Encounter Details Date Type Department Care Team (Late st Contact Info) Description 03/10/2020 Prep for Procedure [facility] One Day [facility] [place], [place] [id number] Abe Barros MD [address] [id number] Social History Tobacco Use Types Packs/Day Years Used Date Smoking Tobacco: Every Day Cigarettes Smokeless Tobacco: Never Alcohol Use Standard Drinks/Week Comments Yes 0 (1 standard drink = 0.6 oz pur e alcohol) occas. Comments Unknown Sex and Gender Information Value Date Recorded Sex Assigned at Not on file Legal Sex Female 11:02 PM HEAD OF CONSERVATION Gender Identity Not on file Sexual Orientation Not on file documented as of this encounter Plan of Treatment Not on file documented as of this encounter Results * PRE-SURGICAL/PRE-PROCEDURE CORONAVIRUS (COVID 19) (03/14/2020 9:07 AM HEAD OF CONSERVATION) CORONAVIRUS SARS COV 2 PCR (RESP) NOT DETECTED NOT DETECTED 03/15/2020 10:26 AM HEAD OF CONSERVATION [facility] Comment: A Not Detected (negative) test [...] providers and patients using the following websites: https://www.[employer]/home/Covid-19/HCP/[facility]/fact- sheet.html https://www.[employer]/home/Covid-19/Patients/ [facility]/fact-sheet.html This test has been authorized by the FDA under an Emergency Use Authorization (EUA) for use by authorized laboratories. Due to the current public health emergency, [facility] is receiving a high volume of samples [...] about COVID-19 can be found at the [facility] website: www.[employer]/Covid19. Test performed at [facility] [address] [place] [address] Director: CATY CONN DO,MPH FIRST TEST YES 03/14/2020 10:34 AM [facility] EMPLOYED IN HEALTHCARE UNKNOWN 03/14/2020 10:34 AM [facility] SYMPTOMATIC DEFINED BY CDC NO 03/14/2020 10:34 AM [facility] DATE OF SYMPTOM ONSET UNKNOWN 03/14/2020 10:57 AM [facility] HOSPITALIZATION STATUS NO 03/14/2020 10:34 AM HEAD OF CONSERVATION [facility] PATIENT IN ICU NO 03/14/2020 10:34 AM HEAD OF CONSERVATION [facility] UN[facility] 03/14/2020 10:34 AM HEAD OF CONSERVATION [facility] NOT 03/14/2020 10:34 AM HEAD OF CONSERVATION [facility] PATIENT'S RACE WHITE OR 03/14/2020 10:34 AM HEAD OF CONSERVATION [facility] Comment:OTHER ETHNICITY NONHISPANIC 03/14/2020 10:34 AM HEAD OF CONSERVATION [facility] SOURCE (QST) NASOPHARYNGEAL SWAB 03/14/2020 10:34 AM HEAD OF CONSERVATION [facility] NASOPHARYNGEAL SWAB / Unknown 03/14/2020 9:07 AM HEAD OF CONSERVATION us Abe Barros MD MICROBIOLOGY - GENERAL EMI SOUZA Final Result [facility] [address] [place] [address], [place] [address], documented in this encounter Visit Diagnoses Diagnosis Dysphagia- Primary Dysphagia, unspecified documented in this encounter Additional Health Concerns Infection Onset Date Last Indicated Resolved Time COVID-19 Rule Out 03/14/2020 03/14/2020 03/15/2020 10:26 AM HEAD OF CONSERVATION COVID-19 Rule Out 06/29/2020 06/29/2020 06/30/2020 6:46 AM CDT COVID-19 Rule Out 09/16/2021 09/16/2021 09/17/2021 2:14 AM CDT COVID-19 Rule Out 11/04/2021 11/04/2021 11/05/2021 10:45 AM CDT documented as of this encounter Care Teams Audio Visual Secretary Relationship Specialty Start Date End Date Shawn Mcclure MD [address] [place] [id number] PCP - General FAMILY PRACTICE 03/17/20 documented as of this encounter
--- OUTSIDE RECORDS SUMMARY | 2024-10-07 02:21 | XMS_ITS | Clinical Summary ---
Author Organization [facility] Address [address] [place] [address] Care Team Providers Care Staff Research Associate Name Role Phone Shawn Mcclure MD Primary Care Provider [phone] Source Comments [facility],non-owned Affiliates and Associated Physician Practices is amultiple site organization consisting of ambulatory clinics and hospital sitesin [place] and [place]. This disclosure is being madepursuant to the Care Everywhere program and may not contain all information available regarding this patient. 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
--- OUTSIDE RECORDS SUMMARY | 2024-10-07 02:21 | XMS_ITS | Clinical Summary ---
Author Organization [facility] Address [address] [place] [address] Care Team Providers Care Grain Distributor Name Role Phone Shawn Mcclure MD Primary Care Provider [phone] Allergies Active Allergy Reactions Criticality Noted Date [...] MCG/ACT inhalerIndicatio ns:Pulmonary emphysema, unspecified emphysema type ([facility]) INHALE 2 PUFFS BY MOUTH EVERY 4 HOURS NEEDED FOR WHEEZING FOR SHORTNESS OF BREATH 18 g 3 Active Active Problems Problem Noted Date Diagnosed Date Chronic obstructive pulmonar y disease, unspecified COPD type ([facility]) 05/03/2020 Cigarette nicotine dependenc e with nicotine-induced disorder 05/03/2020 Physical deconditioning 11/15/2017 GERD (gastroesophageal reflux disease) 7 History of snoring 01/11/2017 Obesity 01/11/2017 Pulmonary emphysema ([facility]) 01/11/2017 Disorder of bone 08/19/2015 Benign neoplasm [...] on file 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 Gender Identity Not on file Sexual Orientation [...] 10:08 AM CDT Height 175.3 cm (5' 9) 08/29/2021 8:22 AM CDT Body Mass Index [...] - 2023-2 5 season) 2023 PHQ-2 (Physician [place]) 03/12/2024 Meningococcal B Vaccine Aged Out No l onger eligible based on patient's age to complete this topic Meningococcal Vaccine Aged Out No antelmo susanne eligible based on patient's age to complete this topic RSV Immunizations Under 20 Months Aged Out No longer eligible based on patient's age to complete this topic Insurance [employer] Care Teams Grain Distributor Relationship Specialty Start Date End Date Shawn Mcclure MD [address] [place] [id number] PCP - General FAMILY PRACTICE 03/17/20
--- OUTSIDE RECORDS SUMMARY | 2024-10-07 02:21 | XMS_ITS | Continuity of Care Document ---
Author Organization [facility] Address [address] [place] [address] [place] [address] Phone Care Team Providers Care Door Repairman Name Role Phone Jerome De La Fuente [...] route every day 1 tablet - Active [place] 7.5 mg-325 mg tablet take 1 tablet [...] Copied on Encounter OFFICE/OUTPA TIENT VISIT, EST [facility], [address] [place], [address], tel:[phone] [facility] COPd (chief complaint) back apin1 (chief complaint) CAD1 (chief complaint) COPDFamily history of ischemic cardiac diseaseGERD w/ esophagitisLumbago 7 Sudhakar Cano. [address], [place], [place], [address] , [place]. tel:[phone] Referring Provider: Abdon Latham, [place], [place], [address]. tel:[phone] [facility], [address], [place], [place], [address], tel:[phone] [facility] No Information 7 Sudhakar Gallagher [address], [address], [place], [place], [address] , [place]. tel:[phone] OFFICE/OUTPA TIENT VISIT, EST [facility], [address], [place], [place], [address], [place] [phone] [facility] back pain1 (chief complaint) gERD1 (chief complaint) GERD w/ esophagitisChronic pain syndrome Chuy- 7 Sudhakar Cano. [address], [place], [place], [address] , [place]. [phone] Referring Provider: Abdon Latham [address], [place], [place], [address]. tel:[phone] OFFICE/OUTPA TIENT VISIT, EST [facility], [address], [place], [place], [address], [place] [phone] [facility] back pain1 (chief complaint) HLP (chief complaint) family CAD (chief complaint) HyperlipidemiaLumba goTobacco useFamily history of ischemic cardiac disease 7 Sudhakar Cano. [address], [place], [address] , [place]. [phone] Referring Provider: Abdon Latham [address], [place], [place], [address]. tel:[phone] PREV VISIT, EST, AGE 40-64 [facility], [address], [place], [place], [address], [place] tel:[phone] [facility] Physical (chief complaint) Encounter for general adult medical exam w abnormal findingsCOPDGERD with esophagitisChronic pain syndrome Jun-0 7 Sudhakar Cano. [address], [place], [place], [address] , [place]. tel:[phone] Referring Provider: Abdon Latham [address], [place], [place], [address]. tel:[phone] OFFICE/OUTPA TIENT VISIT, EST [facility], [address], [place], [place], [address], [place] tel:[phone] [facility] back pain1 (chief complaint) GERD1 (chief complaint) COPD1 (chief complaint) weight gain1 (chief complaint) Chronic pain syndromeCOPDAbnorma l weight gainGERD with esophagitis 7 Sudhakar Cano. [address], [place], [place], [address] , [place]. tel:[phone] Referring Provider: Abdon Latham [address], [place], [place], [address]. tel:[phone] OFFICE/OUTPA TIENT VISIT, [facility], [address], [place], [place], [address], [place] tel:[phone] [facility] anxiety1 (chief complaint) back pain1 (chief complaint) cough1 (chief complaint) alcohol1 (chief complaint) COPDLumbagoDepressi onAlcohol dependence, in remission Sudhakar Gallagher [address], [place], [place], [address] , [place]. tel:[phone] Referring Provider: Abdon Latham [address], [place], [address]. tel:[phone] OFFICE/OUTPA TIENT VISIT, [facility], [address], [place], [place], [address], [place] tel:[phone] [facility] back pain1 (chief complaint) osteopenia 1 (chief complaint) anxiety1 (chief complaint) sick (chief complaint) Acute upper respiratory infection, unspecifiedLumbagoO ther specified disorder of bone densityDepression 7 Sudhakar Gallagher [address], [place], [place], [address] , [place]. tel:[phone] Referring Provider: Abdon Latham [address], [place], [place], [address]. tel:[phone] OFFICE/OUTPA TIENT VISIT, [facility], [address], [place], [place], [address], [place] tel:[phone] [facility] chronic pain (chief complaint) sick1 (chief complaint) Chronic pain syndromeViral infection, unspecified 6 6 Sudhakar Cano. [address], [place], [place], [address] , [place]. tel:[phone] Referring Provider: Abdon Latham [address], [place], [place], [address]. tel:[phone] OFFICE/OUTPA TIENT VISIT, [facility], [address], [place], [place], [address], [place] tel:[phone] [facility] back pain1 (chief complaint) anxiety1 (chief complaint) Chronic pain syndromeGeneralized Anxiety Disorder 0 6 Sudhakar Cano. [address], [place], [place], [address] , [place]. [phone] Referring Provider: Abdon Latham [address], [place], [address]. tel:[phone] OFFICE/OUTPA TIENT VISIT, [facility], [address], [place], [place], [address], [place] tel:[phone] [facility] back pain1 (chief complaint) GERD1 (chief complaint) depression 1 (chief complaint) LumbagoDepressionGE RD with esophagitis 3 6 Sudhakar Gallagher [address], [place], [place], [address] , [place]. [phone] Referring Provider: Abdon Latham [address], [place], [address]. tel:[phone] OFFICE/OUTPA TIENT VISIT, [facility], [address], [place], [place], [address], [place] tel:[phone] [facility] back apin1 (chief complaint) osteonpeni a1 (chief complaint) Chronic pain syndromeOther specified disorder of bone density Sep 5 6 Sudhakar Cano. [address], [place], [place], [address] , [place]. tel:[phone] Referring Provider: [address], [place], [place], [address]. tel:[phone] OFFICE/OUTPA TIENT VISIT, [facility], [address], [place], [place], [address], [place] tel:[phone] [facility] GERD1 (chief complaint) alcohol1 (chief complaint) back pain1 (chief complaint) HLP (chief complaint) Chronic pain syndromeGERD with esophagitisAlcohol dependence, uncomplicatedHyperl ipidemia 6 Sudhakar Cano. [address], [place], [place], [address] , [place]. tel:[phone] Referring Provider: Abdon Latham [address], [place], [place], [address]. tel:[phone] OFFICE/OUTPA TIENT VISIT, [facility], [address], [place], [place], [address], [place] tel:[phone] [facility] back pain1 (chief complaint) Chronic pain syndrome 6 Sudhakar Cano. [address], [place], [place], [address] , [place]. tel:[phone] Referring Provider: Jerome De La Fuente [address], [place], [place], [address]. tel:[phone] OFFICE/OUTPA TIENT VISIT, [facility], [address], [place], [place], [address], [place] tel:[phone] [facility] back apin (chief complaint) osteopenia (chief complaint) LumbagoDisorder of bone, unspecified 6 Sudhakar Cano. [address], [place], [place], [address] , [place]. tel:[phone] Referring Provider: Abdon Latham [address], [place], [place], [address]. tel:[phone] OFFICE/OUTPA TIENT VISIT, [facility], [address], [place], [place], [address], [place] tel:[phone] [facility] HTN (chief complaint) back apin (chief complaint) osteopenia (chief complaint) HLP (chief complaint) HyperlipidemiaVitam in D deficiency, unspecifiedLumbagoE ssential (primary) hypertension 6 Sudhakar Cano. [address], [place], [place], [address] , [place]. [phone] Referring Provider: Abdon Latham [address], [place], [place], [address]. tel:[phone] PREV VISIT, EST, AGE 40-64 [facility], [address], [place], [place], [address], [place] tel:[phone] [facility] Physical (chief complaint) Encounter for general adult medical exam w abnormal findingsGERD with esophagitisLumbagoO ther specified disorder of bone densityEncntr for general adult medical exam w/o abnormal findings 6 Sudhakar Cano. [address], [place], [address] , [place]. [phone] Referring Provider: Abdon Latham [address], [place], [address]. tel:[phone] OFFICE/OUTPA TIENT VISIT, EST [facility], [address], [place], [place], [address], [place] tel:[phone] [facility] back pain1 (chief complaint) osteopenia (chief complaint) GERD1 (chief complaint) GERD with esophagitisLumbagoO ther specified disorder of bone densityEncounter for oth screening for malignant neoplasm of breast 6 Sudhakar Cano. [address], [place], [place], [address] , [place]. [phone] Referring Provider: Abdon Latham [address], [place], [place], [address]. tel:[phone] OFFICE/OUTPA TIENT VISIT, EST [facility], [address], [place], [place], [address], [place] tel:[phone] [facility] back pain1 (chief complaint) osteopenia 1 (chief complaint) LumbagoOth disrd of bone density and structure, left thigh 5 Sudhakar Cano. [address], [place], [place], [address] , [place]. tel:[phone] Referring Provider: Jerome De La Fuente, [address], [place], [place], [address]. tel:[phone] OFFICE/OUTPA TIENT VISIT, [facility], [address], [place], [address], [place] [phone] [facility] back pain (chief complaint) osteopenia 1 (chief complaint) tobacco (chief complaint) GERD1 (chief complaint) Oth disrd of bone density and structure, left thighOther spondylosis, lumbar regionTobacco useGERD with esophagitis 5 Sudhakar Cano. [address], [place], [place], [address] , [place]. [phone] Referring Provider: Abdon Latham [address], [place], [place], [address]. tel:[phone] OFFICE/OUTPA TIENT VISIT, [facility], [address], [place], [address], [place] [phone] [facility] tobacco1 (chief complaint) back pain1 (chief complaint) Other spondylosis, lumbar regionEncounter for screening for osteoporosisTobacco use 5 Sudhakar Gallagher [address], [place], [place], [address] , [place]. [phone] Referring Provider: Abdon Latham [address], [place], [place], [address]. tel:[phone] OFFICE/OUTPA TIENT VISIT, [facility], [address], [place], [place], [address], [place] [phone] [facility] back apin (chief complaint) GERD (chief complaint) tobacco (chief complaint) HTN (chief complaint) LumbagoGERD - Gastro-esophageal reflux diseaseBP - High blood pressureTobacco abuse 5 Sudhakar Cano. [address], [place], [place], [address] , [place]. tel:[phone] Referring Provider: Abdon Latham [address], [place], [address]. tel:[phone] OFFICE/OUTPA TIENT VISIT, [facility], [address], [place], [place], [address], [place] tel:[phone] [facility] back pain (chief complaint) adrenal lesion (chief complaint) LFT (chief complaint) Unspecified chronic liver disease without mention of alcoholEsophageal refluxLumbagoBenign neoplasm of adrenal gland 5 Sudhakar Gallagher [address], [place], [place], [address] , [place]. tel:[phone] Referring Provider: Abdon Latham [address], [place], [place], [address]. tel:[phone] OFFICE/OUTPA TIENT VISIT, [facility], [address], [place], [place], [address], [place] tel:[phone] [facility] lFT (chief complaint) adrenal lesion (chief complaint) back pain (chief complaint) Unspecified chronic liver disease without mention of alcoholLumbagoBenig n neoplasm of adrenal glandGERD 5 Sudhakar Gallagher [address], [place], [place], [address] , [place]. tel:[phone] Referring Provider: Abdon Latham [address], [place], [address]. tel:[phone] PREV VISIT, EST, AGE 40-64 [facility], [address], [place], [place], [address], [place] tel:[phone] [facility] Physical (chief complaint) Routine Medical ExamRoutine Medical Exam 5 Sudhakar Gallagher [address], [place], [place], [address] , [place]. tel:[phone] Referring Provider: Abdon Latham [address], [place], [place], [address]. tel:[phone] OFFICE/OUTPA TIENT VISIT, [facility], [address], [place], [place], [address], [place] tel:[phone] [facility] back pain (chief complaint) gastritis (chief complaint) Acute gastritis with hemorrhageLumbago 4 Sudhakar Cano. [address], [place], [address] , [place]. tel:[phone] Referring Provider: Abdon Latham [address], [place], [address]. tel:[phone] OFFICE/OUTPA TIENT VISIT, [facility], [address], [place], [place], [address], [place] tel:[phone] [facility] back pain (chief complaint) Lumbago 4 Sudhakar Cano. [address], [place], [place], [address] , [place]. tel:[phone] Referring Provider: Abdon Latham [address], [place], [address]. tel:[phone] OFFICE/OUTPA TIENT VISIT, [facility], [address], [place], [address], [place] tel:[phone] [facility] abdominal pain (chief complaint) Abdominal PainHelicobacter pylori (h. pylori) infectionGERD 4 Sudhakar Cano. [address], [place], [place], [address] , [place]. tel:[phone] Referring Provider: Abdon Latham [address], [place], [place], [address]. tel:[phone] OFFICE/OUTPA TIENT VISIT, [facility], [address], [place], [address], [place] tel:[phone] [facility] abdominal pain (chief complaint) Unspecified chronic liver disease without mention of alcoholAbdominal Pain 4 Sudhakar Cano. [address], [place], [address] , [place]. tel:[phone] Referring Provider: Jerome De La Fuente, [address], [place], [place], [address]. tel:[phone] OFFICE/OUTPA TIENT VISIT, EST [facility], [address], [place], [address], [place] tel:[phone] [facility] well woman (chief complaint) vitamin D (chief complaint) back pain (chief complaint) LumbagoUnspecified vitamin d deficiency 4 Sudhakar Cano. [address], [place], [place], [address] , . tel:[phone] Referring Provider: Abdon Latham [address], [place], [address]. tel:[phone] PREV VISIT, EST, AGE 40-64 [facility], [address], [address], [place] tel:[phone] [facility] Physical (chief complaint) Dietary surveillance and counselingRoutine Medical ExamRoutine Medical Exam 4 Sudhakar Cano. [address], [place], [address] , [place]. tel:[phone] Family History Family Member Type Diagnosis Age At Onset Brother Problem (finding) Alive and well Father Problem (finding) Coronary artery disease Mother Problem (finding) Coronary artery disease Payers Payer name Insurance type Covered democrat ID Authoriza tion(s) No Information Social History [...] was referred to some pain management in [facility] but she called and was told the pain managment docor quit?? Ptdoes not know the name of the pain doctor either. CAD1 (chief complaint). Description: Pt has strong family history of CAD. Pt denies any chest pain.Pt also never seen the global process owner. Pt is extremely noncompliant Plan Of Treatment [...] Td vaccine. Due on 17 due Goal Pap/HPV testing. Due on due Goal Influenza vaccine. Due on Ma due Goal Depression screening. Due on due Goal Influenza vaccine. Due on Ap due Goal FOBT. Due on due Goal [...] Influenza vaccine. Due on Ma due Goal Pap/HPV testing. Due on due [...] Goal Td vaccine. Due on due Goal Sigmoidoscopy. Due [...] due Goal Tdap. Due on due Goal Tdap. Due on due Goal Pap/HPV testing. Due on due Goal FOBT. Due on due Goal Td vaccine. Due on 16 due Goal Sigmoidoscopy. Due on due Goal Depression screening. Due on due Goal Influenza vaccine. Due on Ma due Goal FOBT. Due on due Goal Influenza vaccine. Due on Ap due Goal Td vaccine. Due on 16 [...] Goal Td vaccine. Due on due Goal FOBT. Due [...] disease) ordered Referral Referred To: PINA CHÁVEZ [id number] [facility]
[address] [place], [place], [phone] Ordered: Referrals: PINA CHÁVEZ. Evaluate and treat ordered Referral Ordered: Gilbert Naidu (related to Chronic pain syndrome) ordered Referral Ordered: MRI LUMBAR SPINE W/O DYE ordered Referral Ordered: Gilbert Naidu (related to Lumbago) ordered Referral Referred To: Gilbert Naidu [address] [facility]
[address] [place], [phone] Ordered: Referrals: Gilbert Naidu. Evaluate and treat [...] chest pain. Pt also never seen the global process owner. Pt is extremely noncompliant back apin1 Pt has chronic l ow back pain. pt denies any worsening pain. Pt denies any loss of bladder control. Pt was told she is not surgical candiate enrico she was referred to some pain management in [facility] but she called and was told the [...] told she is not [facility]et. [facility] pain1 Pt has [...] ro bladder control. Pt has some sciatica anxiety1 Pt has chronic a nxiety and [...] takes norco for pain and doing ok back pain1 Pt has chronic l ow [...] any cyring spells. Pt has no motivation back apin1 Pt has chronic l ow back pain Pt denies any wrosening pain .Pt denies any loss of verena or bladder control. Pt has 6/10 pain pt failed NSAID P tatkes norco with good control osteonpenia1 Pt denies any hi story of fx. Pt is takgin calicium and vitamin D and try weight bearing exercise now. HLP Pt has mild HLP. Pt is [...] has gastritis. Pt denies any GERd symptoms back pain1 Pt has chronic l ow back pain. Pt denies any loss of bowel or bladder control. pt states that she has sharp low back pain and getting worse lately. Pt notices right sciatica. Pt denies any numnbess aound leg tobacco1 Pt finished the nicoderm patch. Pt smokes about 5 per day now. Pt run out of patch recently. Pt states that she only smoked once when she was on patch and it made her sick. Pt overall feeling it is helping back apin Pt has chronic L BP. [...] Mental Status Date Cognitive Assessment Orientation - [place] ed to time, place, person, situation.
--- NOTE | 2024-10-07 13:51 | WPDHPUPDATE1 ---
History and Physical Update Update Date/Time: 10/07/24 13:51 History and Physical has been reviewed, including an updated exam of the patient. There are NO changes in the patient's condition. Risks, benefits, and alternatives have been discussed and questions answered. Patient agrees to proceed with procedure.
--- NOTE | 2024-10-07 13:51 | W.PM.PROC2 ---
Procedure Note - Detailed Date of Procedure 10/07/24 Pre-op Diagnosis lumbar spondylosis Post-op Diagnosis Same Procedure Performed Bilateral Lumbar Transforaminal Epidural Steroid Injection under Fluoroscopic Guidance and with Contrast Control at L5-S1. Surgeon Dorian Chauhan MD Anesthesia Local Description of Procedure INFORMED CONSENT: Risks, benefits and alternatives to the procedure were discussed in detail with the patient who expressed explicit understanding and consent to proceed. Patient was informed verbally and in written form regarding the risks associated with the procedure including the low risk of serious infection, bleeding/bruising, allergic reaction, nerve or organ injury, paralysis, procedural site pain or discomfort, worsening pain and/or mobility, failure to treat and/or disfigurement. The patient expressed explicit understanding and consent to proceed. All materials required for the procedure were available prior to procedure start. Site and side was marked prior to procedure and confirmed in the presence of the patient. PROCEDURE IN DETAIL: The patient was brought to the procedural suite and placed in the prone position. Patient was made comfortable with use of pillows under the head/chest, hips and ankles. Skin overlying the injection site was prepared broadly with ChloraPrep applicator and draped in a sterile manner. Aseptic technique was employed throughout. The endplates of the vertebral body at the site of interest were aligned in the AP view. Ipsilateral oblique angulation was utilized to better visualize the neuroforamen of interest. Local anesthesia was established by infiltration with approximately 5 mL of 0.5% PF lidocaine via a 1-1/2 inch 27-gauge needle. A 22-gauge 3.5 inch Naima (pencil point) spinal needle was advanced until the needle approached the 6 o'clock position on the pedicle just superior to the exiting nerve root. on the right at L5-S1. Lateral view was utilized to confirm appropriate position of the needle tip within the superior and posterior portion of the respective foramen. In an AP view, 1 mL of Omnipaque 300 contrast medium was injected after negative aspiration for CSF, blood or other bodily fluid, showing appropriate neurogram without evidence of intravascular or intrathecal spread of contrast. Digital subtraction imaging was used with an additional 1ml of the same contrast medium to confirm absence of intravascular contrast spread. A 1mL solution containing 5 mg of dexamethasone was injected after negative repeat aspiration. Appropriate spread of the injectate was confirmed with washout of previously injected contrast. No parasthesias were elicited. Needle was removed completely intact without difficulty. [The same exact procedure was repeated for all remaining levels on the contralateral side, left L5-S1 neuroforamen, modified as necessary to accommodate for the new target location with identical findings and results and no evidence of complication.] Images were saved and documented in the patient chart. Patient's skin was cleaned and sterile bandage applied. The patient tolerated the procedure well. The patient was transported to the recovery area in stable condition where they were observed for an appropriate amount of time prior to discharge, without evidence of complication. The patient was instructed to avoid excessive activity for the next 48 hours, including climbing and frequent use of stairs. Showers only for 48 hours. They were instructed not to drive or operate heavy machinery for 24 hours. They are to monitor for severe headaches, fevers, chills, night sweats, erythema/swelling at the site or any other signs of infection, bleeding/bruising, bowel or bladder changes as well as new pain, weakness or numbness in the upper or lower extremity. Should they notice these changes, they are instructed to call our office immediately or report directly to the nearest Emergency Department if no answer or if after posted office hours. COMPLICATIONS: None COMMENTS: None CONTRAST WASTED: 26 mL Omnipaque 300. Complications No immediate complications Condition Stable Disposition Same day [facility] Billing Surgery - Charge Forward: Surgery Billing
[2024-10-07 14:00] VITALS: BP 149/84; PULSE 85; RESP 14; TEMP 36.7; O2SAT 97
[2024-10-07 14:20] VITALS: BMI 29.5
[2024-10-07 15:19] VITALS: BP 172/80; PULSE 73; RESP 16; O2SAT 96
[2024-10-07] MEDS: LIDOCAINE 2% PF LOCAL INJ 5 ML VIAL INFILTRATE (15:19)
[2024-10-07] MEDS: dexAMETHasone SOD PHOS INJ 10 MG/ML 1 ML VIAL IM (15:20)
[2024-10-07 15:28] VITALS: BP 160/72; PULSE 71; RESP 18; O2SAT 97
[2024-10-07 15:32] VITALS: BP 148/66; PULSE 69; RESP 16; O2SAT 97
== END 2024-10-07 15:53 | disposition home or self-care (01) ==
PROVIDERS: Visit Provider Anesthesiology Pain Medicine
PROC: (CPT 64483; principal; 2024-10-07 15:00)
DX: M47.816 Spondylosis without myelopathy or radiculopathy, lumbar region (principal); M48.061 Spinal stenosis, lumbar region without neurogenic claudication; E78.5 Hyperlipidemia, unspecified; K21.9 Gastro-esophageal reflux disease without esophagitis; J43.9 Emphysema, unspecified; G47.9 Sleep disorder, unspecified; M17.10 Unilateral primary osteoarthritis, unspecified knee; F17.210 Nicotine dependence, cigarettes, uncomplicated; Z79.51 Long term (current) use of inhaled steroids; Z98.890 Other specified postprocedural states; Z87.11 Personal history of peptic ulcer disease; Z80.9 Family history of malignant neoplasm, unspecified; Z82.49 Family history of ischemic heart disease and other diseases of the circulatory system
CPT/HCPCS: 64483; 99199; J1100; J2003; Q9965

== ENCOUNTER 2024-11-06 11:30 | Outpatient (CLI) | payer MEDICARE, MEDICAID, SELFPAY ==
--- OUTSIDE RECORDS SUMMARY | 2016-10-23 04:30 | XMS_ITS | Continuity of Care Document ---
Author Organization [facility] Address [address] [place] [address] [place] [address] Phone Care Team Providers Care Player Development Manager Name Role Phone Jerome De La Fuente MD Unavailable Unavailable Allergies, Adverse Reactions, Alerts Substance Reaction Status Criticality codeine Active No Information Medications Medication Instructions Dosage Effective Dates (start - stop) Status Comments Vitamin D2 50,000 unit capsule take 1 capsule by oral route every week - Active cyclobenzaprine 10 mg tablet take 1 tablet by oral route 2 times every day as needed 10 MG - Active PRN for pain, avoid driving or operate machines omeprazole 20 mg tablet,delayed release take 1 tablet by oral route every day 1 tablet - Active Iona 7.5 mg-325 mg tablet take 1 tablet by oral route 3 times every day as needed for pain 1 tablet - Active avoid driving ramiro perate machines Ventolin HFA 90 mcg/actuation aerosol inhaler inhale 2 puff by inhalation route every 4 - 6 hours as needed - Active PRN for cough or SOB Procedures Procedure Date OFFICE/OUTPATIENT VISIT, EST OFFICE/OUTPATIENT VISIT, EST OFFICE/OUTPATIENT VISIT, EST PREV VISIT, EST, AGE 40-64 OFFICE/OUTPATIENT VISIT, EST OFFICE/OUTPATIENT VISIT, EST OFFICE/OUTPATIENT VISIT, EST OFFICE/OUTPATIENT VISIT, EST OFFICE/OUTPATIENT VISIT, EST OFFICE/OUTPATIENT VISIT, EST OFFICE/OUTPATIENT VISIT, EST OFFICE/OUTPATIENT VISIT, EST OFFICE/OUTPATIENT VISIT, EST OFFICE/OUTPATIENT VISIT, EST OFFICE/OUTPATIENT VISIT, EST OFFICE/OUTPATIENT VISIT, EST PREV VISIT, EST, AGE 40-64 OFFICE/OUTPATIENT VISIT, EST OFFICE/OUTPATIENT VISIT, EST OFFICE/OUTPATIENT VISIT, EST OFFICE/OUTPATIENT VISIT, EST OFFICE/OUTPATIENT VISIT, EST OFFICE/OUTPATIENT VISIT, EST OFFICE/OUTPATIENT VISIT, EST OFFICE/OUTPATIENT VISIT, EST PREV VISIT, EST, AGE 40-64 OFFICE/OUTPATIENT VISIT, EST OFFICE/OUTPATIENT VISIT, EST OFFICE/OUTPATIENT VISIT, EST OFFICE/OUTPATIENT VISIT, EST OFFICE/OUTPATIENT VISIT, EST PREV VISIT, EST, AGE 40-64 Advance Directives Directive Yes / No Effective Date File Name No Information Encounters Encounter Description Practice Location Reason(s) For Visit Diagnoses Date Provider Providers Copied on Encounter OFFICE/OUTPA TIENT VISIT, EST [facility], [address] [place], [address], tel:[phone] [facility], [place], [facility] COPd (chief complaint) back apin1 (chief complaint) CAD1 (chief complaint) COPDFamily history of ischemic cardiac diseaseGERD w/ esophagitisLumbago 7 Sudhakar Cano. [address], [place], [place], [address] , [place]. tel:[phone] Referring Provider: Abdon Latham, [place], [place], [address]. tel:[phone] [facility], [address], [place], [place], [address], tel:[phone] [facility] No Information 7 Sudhakar Gallagher [address], [place], [place], [address] , [place]. tel:[phone] OFFICE/OUTPA TIENT VISIT, EST [facility], [place], [facility], [address], [place], [place], [address], [place] [phone] [facility] [place] back pain1 (chief complaint) gERD1 (chief complaint) GERD w/ esophagitisChronic pain syndrome Chuy- 7 Sudhakar Cano. [address], [place], [place], [address] , [place]. [phone] Referring Provider: Abdon Latham [address], [place], [place], [address]. tel:[phone] OFFICE/OUTPA TIENT VISIT, EST [facility], [place], [address], [place], [place], [address], [place] [phone] [facility] [place] back pain1 (chief complaint) HLP (chief complaint) family CAD (chief complaint) HyperlipidemiaLumba goTobacco useFamily history of ischemic cardiac disease 7 Sudhakar Cano. [address], [place], [place], [address] , [place]. [phone] Referring Provider: Abdon Latham [address], [place], [place], [address]. tel:[phone] PREV VISIT, EST, AGE 40-64 [facility], [place], [address], [place], [place], [address], [place] tel:[phone] [facility] [place] Physical (chief complaint) Encounter for general adult medical exam w abnormal findingsCOPDGERD with esophagitisChronic pain syndrome Jun-0 7 Sudhakar Cano. [address], [place], [place], [address] , [place]. tel:[phone] Referring Provider: Abdon Latham [address], [place], [place], [address]. tel:[phone] OFFICE/OUTPA TIENT VISIT, EST [facility] [place], [address], [place], [place], [address], [place] tel:[phone] [facility] [place] back pain1 (chief complaint) GERD1 (chief complaint) COPD1 (chief complaint) weight gain1 (chief complaint) Chronic pain syndromeCOPDAbnorma l weight gainGERD with esophagitis 7 Sudhakar Cano. [address], [place], [place], [address] , [place]. tel:[phone] Referring Provider: Abdon Latham [address], [place], [place], [address]. tel:[phone] OFFICE/OUTPA TIENT VISIT, [facility], [address], [place], [place], [address], [place] tel:[phone] [facility] [place] anxiety1 (chief complaint) back pain1 (chief complaint) cough1 (chief complaint) alcohol1 (chief complaint) COPDLumbagoDepressi onAlcohol dependence, in remission Sudhakar Gallagher [address], [place], [place], [address] , [place]. tel:[phone] Referring Provider: Abdon Latham [address], [place], [place], [address]. tel:[phone] OFFICE/OUTPA TIENT VISIT, [facility], [address], [place], [place], [address], [place] tel:[phone] [facility] [place] back pain1 (chief complaint) osteopenia 1 (chief complaint) anxiety1 (chief complaint) sick (chief complaint) Acute upper respiratory infection, unspecifiedLumbagoO ther specified disorder of bone densityDepression 7 Sudhakar Gallagher [address], [place], [place], [address] , [place]. tel:[phone] Referring Provider: Abdon Latham [address], [place], [place], [address]. tel:[phone] OFFICE/OUTPA TIENT VISIT, [facility], [address], [place], [place], [address], [place] tel:[phone] [facility] [place] chronic pain (chief complaint) sick1 (chief complaint) Chronic pain syndromeViral infection, unspecified 6 6 Sudhakar Cano. [address], [place], [place], [address] , [place]. tel:[phone] Referring Provider: Abdon Latham [address], [place], [place], [address]. tel:[phone] OFFICE/OUTPA TIENT VISIT, [facility], [address], [place], [place], [address], [place] tel:[phone] [facility] [place] back pain1 (chief complaint) anxiety1 (chief complaint) Chronic pain syndromeGeneralized Anxiety Disorder 0 6 Sudhakar Cano. [address], [place], [place], [address] , [place]. [phone] Referring Provider: Abdon Latham [address], [place], [place], [address]. tel:[phone] OFFICE/OUTPA TIENT VISIT, [facility], [address], [place], [place], [address], [place] tel:[phone] [facility] [place] back pain1 (chief complaint) GERD1 (chief complaint) depression 1 (chief complaint) LumbagoDepressionGE RD with esophagitis 3 6 Sudhakar Gallagher [address], [place], [place], [address] , [place]. [phone] Referring Provider: Abdon Latham [address], [place], [place], [address]. tel:[phone] OFFICE/OUTPA TIENT VISIT, [facility], [address], [place], [place], [address], [place] tel:[phone] [facility] [place] back apin1 (chief complaint) osteonpeni a1 (chief complaint) Chronic pain syndromeOther specified disorder of bone density Sep 5 6 Sudhakar Cano. [address], [place], [place], [address] , [place]. tel:[phone] Referring Provider: [address], [place], [place], [address]. tel:[phone] OFFICE/OUTPA TIENT VISIT, [facility], [address], [place], [place], [address], [place] tel:[phone] [facility] [place] GERD1 (chief complaint) alcohol1 (chief complaint) back pain1 (chief complaint) HLP (chief complaint) Chronic pain syndromeGERD with esophagitisAlcohol dependence, uncomplicatedHyperl ipidemia 6 Sudhakar Cano. [address], [place], [place], [address] , [place]. tel:[phone] Referring Provider: Abdon Latham [address], [place], [place], [address]. tel:[phone] OFFICE/OUTPA TIENT VISIT, [facility], [address], [place], [place], [address], [place] tel:[phone] [facility] [place] back pain1 (chief complaint) Chronic pain syndrome 6 Sudhakar Cano. [address], [place], [place], [address] , [place]. tel:[phone] Referring Provider: Jerome De La Fuente [address], [place], [place], [address]. tel:[phone] OFFICE/OUTPA TIENT VISIT, [facility], [address], [place], [place], [address], [place] tel:[phone] [facility] [place] back apin (chief complaint) osteopenia (chief complaint) LumbagoDisorder of bone, unspecified 6 Sudhakar Cano. [address], [place], [place], [address] , [place]. tel:[phone] Referring Provider: Abdon Latham [address], [place], [place], [address]. tel:[phone] OFFICE/OUTPA TIENT VISIT, [facility], [address], [place], [place], [address], [place] tel:[phone] [facility] [place] HTN (chief complaint) back apin (chief complaint) osteopenia (chief complaint) HLP (chief complaint) HyperlipidemiaVitam in D deficiency, unspecifiedLumbagoE ssential (primary) hypertension 6 Sudhakar Cano. [address], [place], [place], [address] , [place]. [phone] Referring Provider: Abdon Latham [address], [place], [place], [address]. tel:[phone] PREV VISIT, EST, AGE 40-64 [facility] [place], [address], [place], [place], [address], [place] tel:[phone] [facility] [place] Physical (chief complaint) Encounter for general adult medical exam w abnormal findingsGERD with esophagitisLumbagoO ther specified disorder of bone densityEncntr for general adult medical exam w/o abnormal findings 6 Sudhakar Cano. [address], [place], [place], [address] , [place]. [phone] Referring Provider: Abdon Latham [address], [place], [place], [address]. tel:[phone] OFFICE/OUTPA TIENT VISIT, EST [facility] [place], [address], [place], [place], [address], [place] tel:[phone] [facility] [place] back pain1 (chief complaint) osteopenia (chief complaint) GERD1 (chief complaint) GERD with esophagitisLumbagoO ther specified disorder of bone densityEncounter for oth screening for malignant neoplasm of breast 6 Sudhakar Cano. [address], [place], [place], [address] , [place]. [phone] Referring Provider: Abdon Latham [address], [place], [place], [address]. tel:[phone] OFFICE/OUTPA TIENT VISIT, EST [facility] [place], [address], [place], [place], [address], [place] tel:[phone] [facility] [place] back pain1 (chief complaint) osteopenia 1 (chief complaint) LumbagoOth disrd of bone density and structure, left thigh 5 Sudhakar Cano. [address], [place], [place], [address] , [place]. tel:[phone] Referring Provider: Jerome De La Fuente, [address], [place], [place], [address]. tel:[phone] OFFICE/OUTPA TIENT VISIT, [facility], [address], [place], [place], [address], [place] [phone] [facility] [place] back pain (chief complaint) osteopenia 1 (chief complaint) tobacco (chief complaint) GERD1 (chief complaint) Oth disrd of bone density and structure, left thighOther spondylosis, lumbar regionTobacco useGERD with esophagitis 5 Sudhakar Cano. [address], [place], [place], [address] , [place]. [phone] Referring Provider: Abdon Latham [address], [place], [place], [address]. tel:[phone] OFFICE/OUTPA TIENT VISIT, [facility], [address], [place], [place], [address], [place] [phone] [facility] [place] tobacco1 (chief complaint) back pain1 (chief complaint) Other spondylosis, lumbar regionEncounter for screening for osteoporosisTobacco use 5 Sudhakar Gallagher [address], [place], [place], [address] , [place]. [phone] Referring Provider: Abdon Latham [address], [place], [place], [address]. tel:[phone] OFFICE/OUTPA TIENT VISIT, [facility], [address], [place], [place], [address], [place] [phone] [facility] [place] back apin (chief complaint) GERD (chief complaint) tobacco (chief complaint) HTN (chief complaint) LumbagoGERD - Gastro-esophageal reflux diseaseBP - High blood pressureTobacco abuse 5 Sudhakar Cano. [address], [place], [place], [address] , [place]. tel:[phone] Referring Provider: Abdon Latham [address], [place], [place], [address]. tel:[phone] OFFICE/OUTPA TIENT VISIT, [facility], [address], [place], [place], [address], [place] tel:[phone] [facility] back pain (chief complaint) adrenal lesion (chief complaint) LFT (chief complaint) Unspecified chronic liver disease without mention of alcoholEsophageal refluxLumbagoBenign neoplasm of adrenal gland 5 Sudhakar Gallagher [address], [place], [place], [address] , [place]. tel:[phone] Referring Provider: Abdon Latham [address], [place], [place], [address]. tel:[phone] OFFICE/OUTPA TIENT VISIT, [facility], [address], [place], [place], [address], [place] tel:[phone] [facility] lFT (chief complaint) adrenal lesion (chief complaint) back pain (chief complaint) Unspecified chronic liver disease without mention of alcoholLumbagoBenig n neoplasm of adrenal glandGERD 5 Sudhakar Gallagher [address], [place], [place], [address] , [place]. tel:[phone] Referring Provider: Abdon Latham [address], [place], [place], [address]. tel:[phone] PREV VISIT, EST, AGE 40-64 [facility], [address], [place], [place], [address], [place] tel:[phone] [facility] Physical (chief complaint) Routine Medical ExamRoutine Medical Exam 5 Sudhakar Gallagher [address], [place], [place], [address] , [place]. tel:[phone] Referring Provider: Abdon Latham [address], [place], [place], [address]. tel:[phone] OFFICE/OUTPA TIENT VISIT, [facility], [address], [place], [place], [address], [place] tel:[phone] [facility] [place] back pain (chief complaint) gastritis (chief complaint) Acute gastritis with hemorrhageLumbago 4 Sudhakar Cano. [address], [place], [place], [address] , [place]. tel:[phone] Referring Provider: Abdon Latham [address], [place], [place], [address]. tel:[phone] OFFICE/OUTPA TIENT VISIT, [facility], [address], [place], [place], [address], [place] tel:[phone] [facility] [place] back pain (chief complaint) Lumbago 4 Sudhakar Cano. [address], [place], [place], [address] , [place]. tel:[phone] Referring Provider: Abdon Latham [address], [place], [place], [address]. tel:[phone] OFFICE/OUTPA TIENT VISIT, [facility], [address], [place], [place], [address], [place] tel:[phone] [facility] [place] abdominal pain (chief complaint) Abdominal PainHelicobacter pylori (h. pylori) infectionGERD 4 Sudhakar Cano. [address], [place], [place], [address] , [place]. tel:[phone] Referring Provider: Abdon Latham [address], [place], [place], [address]. tel:[phone] OFFICE/OUTPA TIENT VISIT, [facility], [address], [place], [place], [address], [place] tel:[phone] [facility] abdominal pain (chief complaint) Unspecified chronic liver disease without mention of alcoholAbdominal Pain 4 Sudhakar Cano. [address], [place], [place], [address] , [place]. tel:[phone] Referring Provider: Jerome De La Fuente, [address], [place], [place], [address]. tel:[phone] OFFICE/OUTPA TIENT VISIT, EST [facility] [place], [address], [place], [place], [address], [place] tel:[phone] [facility] well woman (chief complaint) vitamin D (chief complaint) back pain (chief complaint) LumbagoUnspecified vitamin d deficiency 4 Sudhakar Cano. [address], [place], [place], [address] , . tel:[phone] Referring Provider: Abdon Ltaham [address], [place], [place], [address]. tel:[phone] PREV VISIT, EST, AGE 40-64 [facility] [place], [address] [place], [address], [place] tel:[phone] [facility] [place] Physical (chief complaint) Dietary surveillance and counselingRoutine Medical ExamRoutine Medical Exam 4 Sudhakar Cano. [address], [place], [place], [address] , [place]. tel:[phone] Family History Family Member Type Diagnosis Age At Onset Brother Problem (finding) Alive and well Father Problem (finding) Coronary artery disease Mother Problem (finding) Coronary artery disease Payers Payer name Insurance type Covered libertarian ID Authoriza tion(s) No Information Social History Type Description Quantity Date Captured Comments Alcohol Use Details No o Caffeine Use Details Unknown Tobacco Use Status Moderate cigarette smoker Au Smoking Status Heavy tobacco smoker Sex Female Vital Signs Date / Time: Height Weight BMI Pulse Rate Blood Pressure Temperature Respiratory Rate Body Surface Area Head Circumference BMI percentile Pulse Ox Inhaled Ox 10:32 AM 175.26 cm 194.80 lbs 28.7 7 kg/m eter (2) 75 /min 140/85 mm[Hg] 98.2 F 18 /min Chief Complaint And Reason For Visit From encounter dated '10/23/2016 09:30'. COPd (chief complaint). Description: Pt has COPD. pt is off aerospan on her own. Pt riya uses albuterol every 2-3 days when she exerting herself. Pt denies any acute sob. Pt denies any chest pain back apin1 (chief complaint). Description: Pt has chronic low back pain. pt denies any worsening pain. Pt denies any loss of bladder control. Pt was told she is not surgical candiate enrico she was referred to some pain management in [facility] [place] but she called and was told the pain managment docor quit?? Ptdoes not know the name of the pain doctor either. CAD1 (chief complaint). Description: Pt has strong family history of CAD. Pt denies any chest pain.Pt also never seen the scalp specialist. Pt is extremely noncompliant Plan Of Treatment Date Type Action Status Goal Sigmoidoscopy. Due on due Goal Pap/HPV testing. Due on due Goal Tdap. Due on due Goal Depression screening. Due on due Goal FOBT. Due on due Goal Influenza vaccine. Due on due Goal Td vaccine. Due on 17 due Goal Tdap. Due on due Goal Pap/HPV testing. Due on due Goal FOBT. Due on due Goal Sigmoidoscopy. Due on due Goal Td vaccine. Due on 17 due Goal Influenza vaccine. Due on due Goal Depression screening. Due on due Goal FOBT. Due on due Goal Tdap. Due on due Goal Sigmoidoscopy. Due on due Goal Td vaccine. Due on due Goal Pap/HPV testing. Due on due Goal Influenza vaccine. Due on due Goal Depression screening. Due on due Goal Td vaccine. Due on due Goal Depression screening. Due on due Goal Pap/HPV testing. Due on due Goal Sigmoidoscopy. Due on due Goal Tdap. Due on due Goal Influenza vaccine. Due on due Goal FOBT. Due on due Goal Pap/HPV testing. Due on due Goal Sigmoidoscopy. Due on due Goal FOBT. Due on due Goal Depression screening. Due on due Goal Td vaccine. Due on due Goal Tdap. Due on due Goal Influenza vaccine. Due on due Goal Pap/HPV testing. Due on due Goal FOBT. Due on due Goal Sigmoidoscopy. Due on due Goal Depression screening. Due on due Goal Influenza vaccine. Due on due Goal Td vaccine. Due on due Goal Tdap. Due on due Goal Influenza vaccine. Due on due Goal Td vaccine. Due on 17 due Goal FOBT. Due on due Goal Tdap. Due on due Goal Pap/HPV testing. Due on due Goal Depression screening. Due on due Goal Sigmoidoscopy. Due on due Goal Sigmoidoscopy. Due on due Goal Depression screening. Due on due Goal Td vaccine. Due on 16 due Goal Pap/HPV testing. Due on due Goal Tdap. Due on due Goal Influenza vaccine. Due on due Goal FOBT. Due on due Goal Depression screening. Due on due Goal Influenza vaccine. Due on due Goal Td vaccine. Due on 16 due Goal FOBT. Due on due Goal Sigmoidoscopy. Due on due Goal Pap/HPV testing. Due on due Goal Tdap. Due on due Goal FOBT. Due on due Goal Depression screening. Due on due Goal Sigmoidoscopy. Due on due Goal Td vaccine. Due on 16 due Goal Pap/HPV testing. Due on due Goal Influenza vaccine. Due on due Goal Tdap. Due on due Goal Sigmoidoscopy. Due on due Goal Pap/HPV testing. Due on due Goal Influenza vaccine. Due on due Goal Depression screening. Due on due Goal Td vaccine. Due on 16 due Goal Tdap. Due on due Goal FOBT. Due on due Goal Influenza vaccine. Due on due Goal Pap/HPV testing. Due on due Goal Tdap. Due on due Goal Depression screening. Due on due Goal FOBT. Due on due Goal Td vaccine. Due on 16 due Goal Sigmoidoscopy. Due on due Goal Tdap. Due on due Goal Influenza vaccine. Due on due Goal Depression screening. Due on due Goal FOBT. Due on due Goal Pap/HPV testing. Due on due Goal Sigmoidoscopy. Due on due Goal Td vaccine. Due on 16 due Goal Pap/HPV testing. Due on due Goal FOBT. Due on due Goal Depression screening. Due on due Goal Influenza vaccine. Due on due Goal Sigmoidoscopy. Due on due Goal Td vaccine. Due on 16 due Goal Tdap. Due on due Goal FOBT. Due on due Goal Tdap. Due on due Goal Pap/HPV testing. Due on due Goal Td vaccine. Due on 16 due Goal Sigmoidoscopy. Due on due Goal Depression screening. Due on due Goal Influenza vaccine. Due on due Goal Tdap. Due on due Goal Depression screening. Due on due Goal Sigmoidoscopy. Due on due Goal Pap/HPV testing. Due on due Goal FOBT. Due on due Goal Influenza vaccine. Due on due Goal Td vaccine. Due on 16 due Goal Influenza vaccine. Due on due Goal Sigmoidoscopy. Due on due Goal Pap/HPV testing. Due on due Goal Td vaccine. Due on 16 due Goal Tdap. Due on due Goal Depression screening. Due on due Goal FOBT. Due on due Goal Influenza vaccine. Due on due Goal Pap/HPV testing. Due on due Goal Tdap. Due on due Goal Sigmoidoscopy. Due on due Goal Depression screening. Due on due Goal FOBT. Due on due Goal Td vaccine. Due on 15 due Goal Td vaccine. Due on 15 due Goal FOBT. Due on due Goal Depression screening. Due on due Goal Sigmoidoscopy. Due on due Goal Tdap. Due on due Goal Pap/HPV testing. Due on due Goal Influenza vaccine. Due on due Goal FOBT. Due on due Goal Td vaccine. Due on due Goal Depression screening. Due on due Goal Sigmoidoscopy. Due on due Goal Pap/HPV testing. Due on due Goal Influenza vaccine. Due on due Goal Tdap. Due on due Goal Td vaccine. Due on 15 due Goal FOBT. Due on due Goal Pap/HPV testing. Due on due Goal Tdap. Due on due Goal Influenza vaccine. Due on due Goal Depression screening. Due on due Goal Sigmoidoscopy. Due on due Goal Depression screening. Due on due Goal FOBT. Due on due Goal Influenza vaccine. Due on due Goal Pap/HPV testing. Due on due Goal Sigmoidoscopy. Due on due Goal Td vaccine. Due on 15 due Goal Tdap. Due on due Goal Colonoscopy. Due on Nov-07-2 014 due Goal Mammogram. Due on 4 due Goal Tobacco cessation counseling completed Goal Tobacco cessation counseling completed Goal Tobacco cessation counseling completed Goal Tobacco cessation counseling completed Goal Tobacco cessation counseling completed Goal Tobacco cessation counseling completed Goal Tobacco cessation counseling completed Referral Ordered: PINA CHÁVEZ (related to Family history of ischemic cardiac disease) ordered Referral Referred To: PINA CHÁVEZ [id number] [facility]
[address] [place], [place], [id number] [phone] Ordered: Referrals: PINA CHÁVEZ. Evaluate and treat ordered Referral Ordered: Gilbert Naidu (related to Chronic pain syndrome) ordered Referral Ordered: MRI LUMBAR SPINE W/O DYE ordered Referral Ordered: Gilbert Naidu (related to Lumbago) ordered Referral Referred To: Gilbert Naidu [id number] [facility]
[address] [place], [id number] [phone] Ordered: Referrals: Gilbert Naidu. Evaluate and treat ordered Referral Ordered: Pain Medicine (related to Other spondylosis, lumbar region) ordered Referral Ordered: Referrals: Pain Medicine. Evaluate and treat ordered Referral Ordered: Neurosurgery (related to Other spondylosis, lumbar region) ordered Referral Ordered: Referrals: Neurosurgery. Evaluate and treat ordered Referral Ordered: DXA BONE DENSITY, AXIAL ordered Referral Ordered: CT ABDOMEN W/O & W/DYE ordered Referral Ordered: COLONOSCOPY AND BIOPSY ordered Referral Ordered: Physical Therapy (related to Lumbago) ordered Referral Referred To: Physical Therapy Ordered: Referral: Physical Therapy. ordered Referral Ordered: LUMBAR XRAY AP AND LAT ONLY ordered Referral Ordered: MAMMOGRAM, SCREENING ordered History Of Present Illness Encounter Date Complaint History Of Prese nt Illness CAD1 Pt has strong fa ana history of CAD. Pt denies any chest pain. Pt also never seen the scalp specialist. Pt is extremely noncompliant back apin1 Pt has chronic l ow back pain. pt denies any worsening pain. Pt denies any loss of bladder control. Pt was told she is not surgical candiate enrico she was referred to some pain management in [facility] [place] but she called and was told the pain managment docor quit?? Pt does not know the name of the pain doctor either. COPd Pt has COPD. pt is off aerospan on her own. Pt riya uses albuterol every 2-3 days when she exerting herself. Pt denies any acute sob. Pt denies any chest pain gERD1 Pt has chronic G ERD with esophagitis. Pt states that insurance does not cover omeprazole anymore. Pt denies any abd pain Pt has GERD without omeprazole. back pain1 Pt has chronic l ow back apin Pt denies any worsening pain Pt denie any loss of bladder control. Pt just seen neurosurgery and she was referred to pain management for injections Pt was told she is not surgical candidaet. [facility] back pain1 Pt has chronic l ow back pain. Pt denies any loss of bowel or bladder control. Pt denies any worsening pain. Pt has 7/10 pain HLP Pt has HLP. Pt i s not on any meds. Her lipd profile is slighlty high family CAD Pt has strong fa ana history of CAD. Pt denies any chest pain. Pt smokes with mild HLP Physical Pt needs annual physical. Pt has copd. Pt takes aerospan and she feels less SOB. Pt has not need to use venotlin .Pt had EGD done which showed esophagitis again. Pt is on omperzole. Pt also has chornic low back pain. Pt has mild sciatica and leg numbness. MRI showed moderate spondylosis. Pt denies any other complaints back pain1 Pt has chronic l ow back pain Pt denies any worsening pain. PT denies any loss of bowel or bladder control. Pt has 7/10 pain PT denies any scaiatica or leg numbness. MRI showed spondylosis GERD1 Pt has GERD with esopaghitis Pt takes omeprazole and doing ok. Pt denies any abd pain or GERD symptoms COPD1 Pt has chronic d ry cough. Pt denies any phlegm. Pt has mild emphysema and she continues to smoke. Pt denies any sOB or chest pain weight gain1 Pt has weight ga in. Pt is not very active. alcohol1 Pt quit alcohol completely recently cough1 Pt c/o productiv e coughing for several weeks now. Pt still smoking about 1/2 PPD. Pt denies any chest pain. Pt feels SOB once a while anxiety1 Pt states that h er anxiety and depression is better since her dad . Pt only takes effexor PRN when she is upset?? Pt denies any suicidal or homicidalt hought. Pt denies any cyring spells back pain1 Pt has chronic l ow back apin. Pt denies any loss of bladde control or any urine retention. Pt c/o bilateral sciatica and some leg numbness. Pt has 6-10 pain depending on her activity. back pain1 Pt has chronic l ow back apin. Pt denies any loss of bowel or bladder control. Pt denies any worsening pain. Pt c/o sciatica and leg numbness. Pt has 7/10 pain osteopenia1 Pt has osteopeni a. Pt takes calcium and vitamin D. Pt denies any fx. anxiety1 Pt has chornic a nxiety and depression. Pt takes effexor and doing ok pt denies any suicidal or homicidalt hought sick Pt c/o chest con gestion, sinus drainage, productive coughing with green phlegm ear pain for 2 months. Pt denies any fever sick1 Pt has ear pain, sore throat, vomigin, diarreha, productive coughing with green phlegm, fatigue for two weeks. Pt deneis any fever. Pt failed OTC meds chronic pain Pt has chronic l ow back pain. Pt denie any worsening pain. Pt has 7/10 pain. Pt denies any loss of bowel ro bladder control. Pt has some sciatica back pain1 Pt has chronic l ow back apin. Pt has 6/10 pain. Pt denies any worsening pain. Pt denies any loss of bowel or bladder control. Pt takes norco for pain and doing ok anxiety1 Pt has chronic a nxiety and depression. Pt takes effexor and is helping Her dad is on life support now and she is more stressed Pt denies any suicidal or homicidal thought GERD1 Pt has GERD. Pt takes omeprazole and doing ok. Pt denies any abd pain or any naseua, vomiting, diarrhea back pain1 Pt has chronic l ow back pain. Pt denies any loss of bowel or bladde control. Pt denies any worsening effie. Pt has 7/10 pain Pt takes norco for pain along with flexeril. Pt states that her pain has been getting worse. Pt c/o intermittent sciatica. Pt notices some leg numbness depression1 Pt states that s he feels depressed and frustated about her constnat low back pain. Pt denies any suicidal or homicidal thought Pt denies any cyring spells. Pt has no motivation osteonpenia1 Pt denies any hi story of fx. Pt is takgin calicium and vitamin D and try weight bearing exercise now. back apin1 Pt has chronic l ow back pain Pt denies any wrosening pain .Pt denies any loss of verena or bladder control. Pt has 6/10 pain pt failed NSAID P tatkes norco with good control HLP Pt has mild HLP. Pt is working on low fat diet back pain1 Pt has chronic l ow back pain. pt denies any loss of bowel or bladder control Pt denies any worsening pain. Pt has 7/10 back pain Pt denies any sciatica or any numbness alcohol1 Pt drinks alcoho l 2-3 per week. SHe drinks 2-3 whisky each time Pt does not mix alcohol with medication. GERD1 Pt has chronic G ERD with esophagitis Pt takes omeprzole and symptoms well controlled. Pt denies any abd pain or GERD symptoms back pain1 Pt has chronic l ow back pain .Pt c/o right sciatic and leg numnbess Pt states that her back pain is getting worse. Pt denies any loss of bowel or bladder control back apin Pt has chornic l ow back apin Pt denies any loss of verena or bladder control. Pt has intermittent sciatica but no numbness. Pt failed NSAID Pt takes norco for pain osteopenia Additional infor mation: Pt has been taking calcium and vitamin D and is trying weight bearing exercise. Pt denies any history of fx. HTN Pt has mild bord alexa HTN. Pt denies any chest pain or headache back apin Pt has chronic l ow back pain. Pt denies any loss of bowel or bladder control. Pt notices mild sciatica and leg numbness. Pt carol anyworsening pain osteopenia Additional infor mation: Pt has mild osteopneia. pt denies any history of fx. Pt is taking calcium and vitamin D daily. Pt has low vitamin D on lab. HLP Pt has HLP. Pt e ats a lot of butter. Pt is not on any diet Physical Pt needs annual physical,. Pt has chronic low back pain. Pt has mild numbness and sciatica symptoms. Pt denies any worsning pain. Pt failed NSAID. Pt has chronic GERD symptoms and is well controlled with omeprazole. Pt just had EGD done recently which showed esophagitis. Pt also has osteopneia and she is taking calcium and vitamin D currently. Pt denies any history of spontaneous fracture. Pt denies any other complaints. GERD1 Pt has GERd. ,Pt atkes omerpzoel daily. Pt has GERD with esophagitis. Pt denies any active symptoms osteopenia Additional infor mation: Pt has not been taking calcium daily. Pt does take vitamin D weekly. Pt denies any history of fracture. back pain1 Pt has chronic l ow bcak pain. Pt denies any loss of bowel or bladder control. Pt denies any worsening pain. Pt takes norco for pain Pt failed NSAID osteopenia1 Tolderaing fosam ax ok. Pt takes calcium and vitmain D also. Pt denies any jaw pain or any bone pain back pain1 Pt has chronic l ow back apin. Pt denies any loss of bowel ro bladder control. Pt has mild sciatica and leg numnbess. Pt denies any worsening pain back pain Additional infor mation: Pt c/o chconric 09/18 low pipe pain with right sciatica. Pt denies any loss of bowel or bladder control. Pt denies any worsening pain. Pt c/o sharp and constant pain. Neurosurgeyr declined appointment to see her. osteopenia1 Pt has mild oste openia left femoral head area on the recent bone density sutdy. Pt denies any history of fracture tobacco Pt is still on t he patch and she is only smoking 2-3 cig per day now. GERD1 Pt takes omepraz ole. Pt has refluex esophagitis. Pt has gastritis. Pt denies any GERd symptoms tobacco1 Pt finished the nicoderm patch. Pt smokes about 5 per day now. Pt run out of patch recently. Pt states that she only smoked once when she was on patch and it made her sick. Pt overall feeling it is helping back pain1 Pt has chronic l ow back pain. Pt denies any loss of bowel or bladder control. pt states that she has sharp low back pain and getting worse lately. Pt notices right sciatica. Pt denies any numnbess aound leg back apin Pt has chronic L BP. pt denies any loss of bowel or bladder control. Pt denies any sciatica. Pt has sharp pain constantly tobacco Pt smokes 2 PPD for 23 years. Pt denies any SOB. Pt wants to quit HTN Pt has borderlin e HTN today. Pt denies any chest pain or headache GERD Associated sympt oms include back pain. Pertinent negatives include constipation, diarrhea, dyspnea, fever, heartburn, hematuria, rash, vaginal discharge, vomiting, weight gain and weight loss.Additional information:Pt has gastritis and doing ok with omerpzole. Pt denies any abd pain or any GERD. back pain Additional infor mation: Pt has chronic LBP Pt denies any loss of bowel or bladder control. Pt unable to find pain managment. Pt failed PT. adrenal lesion benign on CT sca n LFT LFT and hepatiti s ok Instructions Date Instruction Additional Infor ruchi Quit smoking Related to COPD Prescribed Diet Educ ation/Lifestyle Education Regarding Diet Related to Dietary Surveillance and Counseling Prescribed Activity and Exercise Education Related to Dietary Surveillance and Counseling Prescribed Activity and Exercise Education Related to Dietary Surveillance and Counseling Prescribed Diet Educ ation/Lifestyle Education Regarding Diet Related to Dietary Surveillance and Counseling Decrease caloric intake Related to Dietary surveillance counseling Dietary counseling Related to Di etary surveillance counseling Assessments Type Assessment Date assessment COPD assessment Family history of ischemic cardi ac disease assessment GERD w/ esophagitis assessment Lumbago Mental Status Date Cognitive Assessment Orientation - Winside ed to time, place, person, situation.
--- NOTE | ~2024-11-06 | XR_ITS ---
XR thoracic spine 3V Indication: M54.6 - Pain in thoracic spine, chronic Comparison: None Findings: Moderate loss of vertebral height, no fracture or subluxation. Moderate loss of disc height throughout. Soft tissues unremarkable Impression: No acute abnormality. Reviewed, dictated and finalized at location A. Impression: No acute abnormality.
--- OUTSIDE RECORDS SUMMARY | 2024-11-06 11:35 | XMS_ITS | Encounter Summary ---
Author Organization [facility] Address [facility] [place] [address] Care Team Providers Care Day Care Assistant Name Role Phone Shawn Mcclure MD Primary Care Provider [phone] Encounter Details Date Type Department Care Team (Late st Contact Info) Description 03/10/2020 Prep for Procedure [facility] One Day [facility] [place], [place] [address] Abe Barros MD [address] [phone] Social History Tobacco Use Types Packs/Day Years Used Date Smoking Tobacco: Every Day Cigarettes Smokeless Tobacco: Never Alcohol Use Standard Drinks/Week Comments Yes 0 (1 standard drink = 0.6 oz pur e alcohol) occas. Comments Unknown Sex and Gender Information Value Date Recorded Sex Assigned at Not on file Legal Sex Female 11:02 PM HIM ASSISTANT Gender Identity Not on file Sexual Orientation Not on file documented as of this encounter Plan of Treatment Not on file documented as of this encounter Results * PRE-SURGICAL/PRE-PROCEDURE CORONAVIRUS (COVID 19) (03/14/2020 9:07 AM HIM ASSISTANT) CORONAVIRUS SARS COV 2 PCR (RESP) NOT DETECTED NOT DETECTED 03/15/2020 10:26 AM HIM ASSISTANT [facility] Comment: A Not Detected (negative) test [...] providers and patients using the following websites: https://www.[employer].Hit the Mark/home/Covid-19/HCP/QuestIVD/fact- sheet.html https://www.[employer]/home/Covid-19/Patients/ Quest[employer]/fact-sheet.html This test has been authorized by the FDA under an Emergency Use Authorization (EUA) for use by authorized laboratories. Due to the current public health emergency, [employer] is receiving a high volume of samples [...] about COVID-19 can be found at the [employer] website: www.[employer].Hit the Mark/Covid19. Test performed at [facility] [place] [address] [place] [address] Director: CATY CONN DO,MPH FIRST TEST YES 03/14/2020 10:34 AM [facility] EMPLOYED IN HEALTHCARE UNKNOWN 03/14/2020 10:34 AM [facility] SYMPTOMATIC DEFINED BY CDC NO 03/14/2020 10:34 AM [facility] DATE OF SYMPTOM ONSET UNKNOWN 03/14/2020 10:57 AM [facility] HOSPITALIZATION STATUS NO 03/14/2020 10:34 AM HIM ASSISTANT [facility] PATIENT IN ICU NO 03/14/2020 10:34 AM HIM ASSISTANT [facility] UN[facility] 03/14/2020 10:34 AM HIM ASSISTANT [facility] NOT 03/14/2020 10:34 AM HIM ASSISTANT [facility] PATIENT'S RACE WHITE OR 03/14/2020 10:34 AM HIM ASSISTANT [facility] Comment:OTHER ETHNICITY NONHISPANIC 03/14/2020 10:34 AM HIM ASSISTANT [facility] SOURCE (QST) NASOPHARYNGEAL SWAB 03/14/2020 10:34 AM HIM ASSISTANT [facility] NASOPHARYNGEAL SWAB / Unknown 03/14/2020 9:07 AM HIM ASSISTANT us Abe Barros MD MICROBIOLOGY - GENERAL EMI SOUZA Final Result [facility] [address] [place] [address], [place] [address], documented in this encounter Visit Diagnoses Diagnosis Dysphagia- Primary Dysphagia, unspecified documented in this encounter Additional Health Concerns Infection Onset Date Last Indicated Resolved Time COVID-19 Rule Out 03/14/2020 03/14/2020 03/15/2020 10:26 AM HIM ASSISTANT COVID-19 Rule Out 06/29/2020 06/29/2020 06/30/2020 6:46 AM CDT COVID-19 Rule Out 09/16/2021 09/16/2021 09/17/2021 2:14 AM CDT COVID-19 Rule Out 11/04/2021 11/04/2021 11/05/2021 10:45 AM CDT documented as of this encounter Care Teams Day Care Assistant Relationship Specialty Start Date End Date Shawn Mcclure MD [address] [place] [id number] PCP - General FAMILY PRACTICE 03/17/20 documented as of this encounter
--- OUTSIDE RECORDS SUMMARY | 2024-11-06 11:35 | XMS_ITS | Clinical Summary ---
Author Organization [facility] Address [address] [place] [address] Care Team Providers Care Customer Success Advocate Name Role Phone Shawn Mcclure MD Primary Care Provider [phone] Allergies Active Allergy Reactions Criticality Noted Date [...] MCG/ACT inhalerIndicatio ns:Pulmonary emphysema, unspecified emphysema type ([facility]) INHALE 2 PUFFS BY MOUTH EVERY 4 HOURS NEEDED FOR WHEEZING FOR SHORTNESS OF BREATH 18 g 3 Active Active Problems Problem Noted Date Diagnosed Date Chronic obstructive pulmonar y disease, unspecified COPD type ([facility]) 05/03/2020 Cigarette nicotine dependenc e with nicotine-induced disorder 05/03/2020 Physical deconditioning 11/15/2017 GERD (gastroesophageal reflux disease) 7 History of snoring 01/11/2017 Obesity 01/11/2017 Pulmonary emphysema ([facility]) 01/11/2017 Disorder of bone 08/19/2015 Benign neoplasm [...] on file Legal Sex Female 11:02 PM MEDICAL LIAISON Gender Identity Not on file Sexual Orientation [...] - 2023-2 5 season) 2023 PHQ-2 (Physician [place]) 03/12/2024 Meningococcal B Vaccine Aged Out No l onger eligible based on patient's age to complete this topic Meningococcal Vaccine Aged Out No antelmo susanne eligible based on patient's age to complete this topic RSV Immunizations Under 20 Months Aged Out No longer eligible based on patient's age to complete this topic Insurance [employer] Care Teams Customer Success Advocate Relationship Specialty Start Date End Date Shawn Mcclure MD [address] [place] [id number] PCP - General FAMILY PRACTICE 03/17/20
--- OUTSIDE RECORDS SUMMARY | 2024-11-06 11:35 | XMS_ITS | Clinical Summary ---
Author Organization [facility] Address [address] [place] [address] Care Team Providers Care Uniform Room Attendant Name Role Phone Shawn Mcclure MD Primary Care Provider [phone] Source Comments [facility],non-owned Affiliates and Associated Physician Practices is amultiple site organization consisting of ambulatory clinics and hospital sitesin [place], [place], [place] and [place]. This disclosure is being madepursuant to the Care Everywhere program and may not contain all information available regarding this patient. Last updated 17.[facility] Allergies Active Allergy Reactions Criticality Noted Date [...] on file Legal Sex Female 10:33 AM OSS ARCHITECT Gender Identity Not on file Sexual Orientation [...] STATE MEDICARE MEDICAID - [place] MEDICARE [facility] Care Teams Uniform Room Attendant Relationship Specialty Start Date End Date Shawn Mcclure MD [address] [place] [address] [address] [place] [address] PCP - General 09/26/19
== END 2024-11-06 11:31 | disposition home or self-care (01) ==
PROVIDERS: Visit Provider Nurse Practitioner Adult Health
DX: M54.6 Pain in thoracic spine (principal)
CPT/HCPCS: 72072

== ENCOUNTER 2025-01-07 14:18 | Outpatient (CLI) | payer MEDICARE, MEDICAID, SELFPAY ==
--- NOTE | ~2025-01-07 | MR_ITS ---
EXAMINATION: MR thoracic spine wo con DATE: 01/07/2025 14:55 INDICATION: Pain in thoracic spine. TECHNIQUE: Magnetic resonance imaging (MRI) of the thoracic spine was performed without intravenous contrast. COMPARISON: None FINDINGS: Alignment is normal. There is mild chronic anterior wedging of T7, T11, and T12 vertebral bodies. There is mildly decreased disc height at T4-T5, moderately decreased disc height at T5-T6, mildly decreased disc height at T7-T8 and T11-T12, and moderately decreased disc height at T12-L1. There is multilevel facet joint osteoarthritis, severe at many levels. There is mild neural foraminal stenosis at many levels on either side. At T12-L1, the disc is bulging with mild central canal stenosis. The spinal cord signal intensity is normal. The conus medullaris is at T12-L1. There is a small sliding hiatal hernia. There is a 5.0 cm cyst in the liver. IMPRESSION: 1. Moderate thoracic spondylosis. Reviewed, dictated and finalized at location E.
== END 2025-01-07 14:19 | disposition home or self-care (01) ==
LOC: MICIMG 14:19
PROVIDERS: PCP Nurse Practitioner Adult Health; Visit Provider Nurse Practitioner Adult Health
DX: M79.18 Myalgia, other site (principal); M47.894 Other spondylosis, thoracic region
CPT/HCPCS: 72146